=== PATIENT | female | born 1955 | race Caucasian/White ===

== ENCOUNTER 2018-01-13 20:15 | Observation (INO) | payer BC, SELFPAY ==
[2018-01-13] VITALS (7 sets, daily range): BP systolic 119–159; BP diastolic 43–137; PULSE 104–117; RESP 20–28; TEMP 36.4–37.1; O2SAT 88–93; BMI 28.7; BMI 26.6
--- NOTE | 2018-01-13 20:52 | RAD_ITS ---
STUDY: X-RAY CHEST REASON FOR EXAM: Female, 62 years old. SOB / SOA TECHNIQUE: Single frontal view of the chest. COMPARISON: None. FINDINGS: Chronic appearing increased interstitial lung markings. There is no demonstrated pleural abnormality. Normal heart size. Normal mediastinum and braenna. Normal visualized pulmonary arteries. There is atherosclerotic calcification of the aortic arch with tortuosity. There are diffuse degenerative changes of the visualized thoracic spine. There is degenerative osteoarthritis of the bilateral shoulders. There is no demonstrated abnormality of the visualized soft tissue structures of the upper abdomen. RAD/Chest 1 View (Portable) IMPRESSION: There are no acute findings. Electronically Signed: Dominic Godfrey MD at 21:35 EDT , Service support ,
--- NOTE | 2018-01-13 20:56 | NURSING ---
NO OLD EKG'S
[2018-01-13] MEDS: Ipratropium/Albuterol Sulfate 3 ML AMPUL.NEB INHALATION (21:00)
[2018-01-13] MEDS: Albuterol 2.5 MG/3 ML VIAL.NEB. INHALATION ×3 (21:01)
[2018-01-13 21:05] LABS: Basophil# 0.04 X10^3/uL; Basophil% 0.3 % (0-1); Eosinophil# 0.17 X10^3/uL; Eosinophils% 1.2 % (0-5); Hematocrit 45.6 % (37-47); Hemoglobin 14.5 g/dl (12.0-15.0); Lymphocyte % 18.8 % (19-41); Mean Corp Hgb Conc 31.8 g/gl (32-36); Mean Corpuscular Hgb 29.9 pg (27.0-32.0); Mean Platelet Vol. 10.6 fl (6.2-12.0); Monocyte# 1.01 X10^3/uL; Monocyte% 7.3 % (0-10); Neutrophil # 9.98 X10^3/uL (2.7-7.7); Neutrophil % 72.2 % (47-70); Platelet Count 273 K/mm3 (150-450); RBC Distribution Width SD 47.8 fl (35.1-43.9); Red Blood Count 4.85 M/mm3 (4.2-5.4); White Blood Count 13.8 K/mm3 (4.4-11.0)
[2018-01-13 21:06] LABS: POSITIVE COUNT NO; POSITIVE DIFFERENTIAL NO; POSITIVE MORPHOLOGY NO
[2018-01-13 21:23] LABS: Anion Gap 10 (5-15); BUN 13 mg/dL (7-18); BUN/Creat Ratio 16.1 RATIO (10-20); Chloride 103 mmol/L (98-107); Creatinine, Serum 0.81 mg/dL (0.55-1.02); EST Glomerular Filtration Rate 76 mL/min (>60); Est Glom Filt Rate - Afr Amer 92 mL/min (>60); Estimated Creatinine Clearance 56.23 ml/min; Glucose 164 mg/dL (74-106); Potassium 3.6 mmol/L (3.5-5.1); Sodium Level 141 mmol/L (136-145)
[2018-01-13 21:45] LABS: Blood Gas Specimen Type VEN; SITE OTHER; VBG BASE EXCESS 3 mmol/L (-1.0-3.5); VBG Bicarbonate 28 mmol/L (22-26); VBG Oxygen Content 30 mmol/L (23-33); VBG PO2 33 mmHg (25-40); VBG SO2 62 % (50-70); VBG pCO2 47.4 mmHg (41-51); VBG pH 7.38 (7.32-7.42)
--- NOTE | 2018-01-13 22:18 | PCM.HP.STD ---
Problem List (1) Asthma Status: Chronic Qualifiers: Asthma severity: unspecified severity Asthma persistence: unspecified Asthma complication type: unspecified Qualified Code(s): J45.909 - Unspecified asthma, uncomplicated (2) Asthma exacerbation Status: Acute Qualifiers: Asthma severity: unspecified severity Asthma persistence: unspecified Qualified Code(s): J45.901 - Unspecified asthma with (acute) exacerbation (3) Diabetes mellitus, type II Status: Acute Qualifiers: Diabetes mellitus termination clerk insulin use: without residential use Diabetes mellitus complication status: with unspecified complications Qualified Code(s): E11.8 - Type 2 diabetes mellitus with unspecified complications (4) Overweight (BMI 25.0-29.9) Status: Chronic (5) Glaucoma Status: Chronic Qualifiers: Glaucoma type: unspecified Laterality: unspecified laterality Qualified Code(s): H40.9 - Unspecified glaucoma History of Present Illness Date of Admission: 01/13/18 Chief Complaint: Cough, dyspnea, wheezing, sore throat The patient is a 62 y/o F w/ PMHx: Asthma, Overweight, Diabetes mellitus type II who presents to the [facility] ED on 01/13/18 with history of recent PCP evaluation ~ 1 week prior with asthma exacerbation treatment at that time with currently only 1 remaining dose of prednisone with onset over the last 3 days new sore throat, cough, congestion, rhinorrhea with progressively increasing dyspnea, wheezing. In the ED work-up included initial oxygenation 88% on RA-->93% on 5L NC, HR 107, BP 159/137-->119/46, RR 20s, CBC w/ WBC 13.8, Hgb 14.5, Plts 273 with L shift, VBG not marked appearing, BMP glucose 164 otherwise not marked appearing, CXR without acute findings. In the ED patient administered NS bolus, prednisone 60 mg x 1, duoneb, albuterol. She notes recent ill contacts, grandchildren and children with URI, similar symptoms. She notes planned upcoming establishment with Pulmonary. Past Medical History Past Medical History (Chronic Problems): Chronic Problems (This Medical Record has been edited. Action required.) Asthma (Chronic) Overweight (BMI 25.0-29.9) (Chronic) Glaucoma (Chronic) Allergies amoxicillin trihydrate [From Augmentin] Adverse Reaction (Intermediate, Verified 01/13/18 20:20) Nausea potassium clavulanate [From Augmentin] Adverse Reaction (Intermediate, Verified 01/13/18 20:20) Nausea Home Medications: Ambulatory Orders Medication Instructions Recorded albuterol sulfate HFA 90 2 puff INHALATION Q4H PRN g 11/11/17 mcg/actuation aerosol inhaler fluticasone 100 mcg-salmeterol 50 1 puff INHALATION BID 11/11/17 mcg/dose blistr powdr for inhalation latanoprost 0.005 % eye drops 1 drp OPHTHALMIC QDAY 11/11/17 metformin 500 mg tablet 500 mg PO .4 x qd tab 11/11/17 sitagliptin 100 mg tablet 100 mg PO QDAY 11/11/17 Lisinopril [Zestril] 2.5 mg PO DAILY 01/13/18 Montelukast [Singulair] 10 mg PO DAILY 01/13/18 Surgical History: - - Appendectomy, BLTL. 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 Paternal History Items: - - Father with history of diabetes. Review of Systems Constitutional: Reports: Anorexia, Malaise, Weakness, Fatigue. Denies: Chills, Fever, Weight Change HEENT: Reports: Nasal Congestion, Post Nasal Drip, Sinus Congestion, Sinus Drainage, Sore Throat. Denies: Head Aches Cardiovascular: Denies: Chest Pain, Palpitations Respiratory: Reports: Cough, Shortness of Breath, Shortness of breath at rest, Shortness of breath upon exertion, Wheezing. Denies: Sputum production Gastrointestinal: Denies: Abdominal Pain, Nausea, Vomiting Genitourinary: Denies: Dysuria Musculoskeletal: Denies: Joint Pain, Joint Tenderness Skin: Denies: Rash, Wounds Neurological: Denies: Numbness, Tingling, Focal weakness Psychiatric: Denies: Anxiety, Depression, Homicidal Ideations, Suicidal Ideations Hematologic/ Lymphatic: Denies: Easy Bruising, Easy Bleeding VTE Information - Inpt Only VTE Present on Admission: No VTE Mechan Device Prophylaxis: SCD's VTE Pharm Prophylaxis ordered?: Yes Patient Problems: Active and Suspected Problems (This Medical Record has been edited. Action required.) Asthma exacerbation (Acute) Diabetes mellitus, type II (Acute) Subjective: Seated upright in the ED bed, fatigued appearing. Objective: Physical Examination: General: awake, alert, oriented x 3 and cooperative, seated upright in the ED bed in no apparent distress, fatigued, ill appearing. Skin: normal color, turgor, no icterus, cyanosis. HEENT: AT/NC, EOMI, PERRLA, mildly dry MM, red nares, rhinorrhea evident, congested, no carotid bruits or JVD noted. Lungs: Diminished BS bases, coarse BS, expiratory wheezing diffusely. Heart: Tachycardic with regular rhythm; no gallop, rub audible. Abdomen: soft, overweight, NTTP, ND, normal BS, no HSM. Extremities: no cyanosis, clubbing, or edema. Neurological: patient awake, alert, oriented x 3; cognitive function intact; pupils equally reactive to light and accomodation; cranial nerves II-XII grossly normal, moving all 4 extremities, no focal deficits, strength severely globally decrease secondary to acute presentation. Psychiatric: affect appears normal, no acute evidence of depressive or anxiety feelings. - Physical Exam Vital Signs Temp Pulse Resp BP Pulse Ox 98.7 F 111 H 23 H 119/46 L 93 01/13/18 20:16 01/13/18 22:15 01/13/18 22:15 01/13/18 22:15 01/13/18 22:15 Oxygen Flow Rate (L/min) 5 Oxygen Delivery Method Nasal Cannula Weight: 157 lb 3.033 oz Body Mass Index (BMI) 28.7 Laboratory Tests Past 24 Hrs 01/13/18 01/13/18 01/13/18 20:38 20:38 21:39 WBC 13.8 H RBC 4.85 Hgb 14.5 Hct 45.6 MCV 94.0 MCH 29.9 MCHC 31.8 L RDW 14.0 RDW Differential 47.8 H Plt Count 273 MPV 10.6 Immature Gran % (Auto) 0.200 Neut % (Auto) 72.2 H Lymph % (Auto) 18.8 L Bailey % (Auto) 7.3 Eos % (Auto) 1.2 Baso % (Auto) 0.3 Absolute Neuts (auto) 10.0 H Absolute Lymphs (auto) 2.60 Total Counted Not Reportable Specimen Type DAVID Sample Site OTHER VBG pH 7.38 VBG pO2 33 VBG O2 Sat (Calc) 62 VBG O2 Content 30 VBG Base Excess 3 POC Mix VBG pCO2 Pt Tmp 47.4 Blood Gas Notified Whom ED Sodium 141 Potassium 3.6 Chloride 103 Carbon Dioxide 28.0 Anion Gap 10 BUN 13 Creatinine 0.81 Estim Creat Clear Calc 56.23 Est GFR (MDRD) Af Amer 92 Est GFR (MDRD) Non-Af 76 BUN/Creatinine Ratio 16.1 Glucose 164 H Calcium 9.0 Assessment/Plan Active and Suspected Problems (This Medical Record has been edited. Action required.) Asthma exacerbation (Acute) Diabetes mellitus, type II (Acute) The patient is a 62 y/o F w/ PMHx: Asthma, Overweight, Diabetes mellitus type II who presents to the [facility] ED on 01/13/18 with history of recent PCP evaluation ~ 1 week prior with asthma exacerbation treatment at that time with currently only 1 remaining dose of prednisone with onset over the last 3 days new sore throat, cough, congestion, rhinorrhea with progressively increasing dyspnea, wheezing. (1) Acute Asthma exacerbation w/ Hypoxia, URI, Suspected Viral Syndrome, Possible Bronchitis Additionally: CXR w/ chronic changes, CBC on admission w/ WBC 13.8 with L shift. Will admit to MS, maintain on oxygen with wean as tolerated to room air, continue ATC duonebs, PRN albuterol, IV methylprednisolone, HOB, IS parameters, IV Azithromcyin with pending sputum cultures and respiratory viral panel requested. (2) Diabetes mellitus type II: Hold oral home regimen, continue home insulin regimen, ADA diet, accu checks w/ ISS. (3) Overweight: Lifestyle and diet changes encouraged. (4) Glaucoma: Continue home eye drop regimen. (5) DVT Prophylaxis: SCDs, lovenox. Code Visit Inpatient E&M: 90026 Init Hosp L3
[2018-01-13 23:39] LABS: Magnesium 2.1 mg/dL (1.6-2.6)
[2018-01-13] MEDS: 0.9% Normal Saline 1,000 ML 125 ML IV (23:44)
[2018-01-13] MEDS: MethylPREDNISolone 125 MG/2 ML Vial IV (23:44)
[2018-01-14] VITALS (14 sets, daily range): BP systolic 100–119; BP diastolic 51–81; PULSE 85–115; RESP 16–20; TEMP 35.5–36.6; O2SAT 84–97
[2018-01-14] MEDS: Ondansetron 4 MG/2 ML Vial IV (00:13)
--- NOTE | 2018-01-14 01:39 | ED.VISSUMM ---
- ER Visit Summary Date of Service: 01/14/18 Chief Complaint: Shortness of breath History of Present Illness: The patient is a 62 F presenting for evaluation secondary shortness of breath. Patient has an underlying history of asthma, and states that last week she was suffering from an asthma exacerbation. She was placed on a prednisone taper and is on the last 2 days of her prednisone taper. Patient states that since yesterday she has been had progressively worsening shortness of breath. Is associated with a cough sore throat and rhinorrhea. Patient denies any chest pain associated with this. Review of systems otherwise negative. Physical Examination: Vital signs are notable for heart rate of 107 a pulse ox of 88% on room air with hypoxia. Well-nourished female no acute distress. Moist mucous membranes. Heart regular rhythm with mild tachycardia. No respiratory distress was noted, but the patient was noted to have significant wheezes throughout the lung johnson and poor air movement. No obvious retractions noted. Abdomen soft nontender. No peripheral edema normal peripheral pulses. Test Results: Chest x-ray shows no acute pathology per radiology. CBC shows white count of 13.8, chemistry unremarkable. Emergency Department Course and Treatment: Patient presented for evaluation secondary to shortness of breath in the setting of wheezing and a history of asthma. She was given a DuoNeb and albuterol treatments as well as prednisone and did have some improvement on repeat evaluation. Patient continued to require submental oxygen, so I believe she requires admission. I discussed this with the hospitalist. Disposition: Admission Impression: 1. Asthma exacerbation 2. Hypoxia This note was generated with [employer] dictation software. It may contain incorrect words, spelling, and punctuation that were not noted in review of the chart prior to signing ED Disposition - Plan for ED Patient: Disposition: Acute Care Hospital [facility] Chief Complaint: Shortness of Breath
[2018-01-14] MEDS: Ipratropium/Albuterol Sulfate 3 ML AMPUL.NEB INHALATION ×6 (03:03→22:19)
[2018-01-14 06:55] LABS: Bedside Glucose 216 mg/dL (70-110)
[2018-01-14 07:15] LABS: Anion Gap 9 (5-15); BUN 11 mg/dL (7-18); BUN/Creat Ratio 12.6 RATIO (10-20); Calcium,Total 8.9 mg/dL (8.5-10.1); Chloride 105 mmol/L (98-107); Creatinine, Serum 0.87 mg/dL (0.55-1.02); EST Glomerular Filtration Rate 70 mL/min (>60); Est Glom Filt Rate - Afr Amer 84 mL/min (>60); Estimated Creatinine Clearance 52.35 ml/min; Glucose 220 mg/dL (74-106); Potassium 4.4 mmol/L (3.5-5.1); Sodium Level 140 mmol/L (136-145)
[2018-01-14 07:21] LABS: Absolute Lymphocyte Count 0.86 X10^3/ul (0.83-4.51); Absolute Neutrophil Count 13.9 X10^3/uL (2.0-7.7); Hematocrit 42.4 % (37-47); Hemoglobin 13.7 g/dl (12.0-15.0); Lymphocyte # 0.86 X10^3/ul (4.0); Lymphocyte % 5.8 % (19-41); Mean Corp Hgb Conc 32.3 g/gl (32-36); Mean Corpuscular Hgb 30.1 pg (27.0-32.0); Mean Corpuscular Volume 93.2 fL (81-99); Mean Platelet Vol. 10.9 fl (6.2-12.0); Monocyte# 0.13 X10^3/uL; Monocyte% 0.9 % (0-10); Neutrophil # 13.87 X10^3/uL (2.7-7.7); Platelet Count 274 K/mm3 (150-450); RBC Distribution Width SD 47.5 fl (35.1-43.9); Red Blood Count 4.55 M/mm3 (4.2-5.4); White Blood Count 14.9 K/mm3 (4.4-11.0)
[2018-01-14 07:44] LABS: POSITIVE COUNT NO; POSITIVE DIFFERENTIAL NO; POSITIVE MORPHOLOGY NO
--- NOTE | 2018-01-14 09:20 | PCM.DC ---
- Discharge Diagnoses Current Active Problems: Current Active and Chronic Problems (This Medical Record has been edited. Action required.) Asthma (Chronic) Asthma exacerbation (Acute) Diabetes mellitus, type II (Acute) Overweight (BMI 25.0-29.9) (Chronic) Glaucoma (Chronic) You will use the following diet at home:: No restrictions Your food should be the consistency of: Regular Discharge Activity: May not drive while taking narcotic pain medications. Allergies/Adverse Reactions: Allergies cat dander Allergy (Verified 01/13/18 23:36) wheezy mold Allergy (Verified 01/13/18 23:36) wheezy pollen extracts Allergy (Verified 01/13/18 23:36) wheezy amoxicillin trihydrate [From Augmentin] Adverse Reaction (Intermediate, Verified 01/13/18 20:20) Nausea potassium clavulanate [From Augmentin] Adverse Reaction (Intermediate, Verified 01/13/18 20:20) Nausea Medications to take at Discharge albuterol sulfate HFA 90 mcg/actuation aerosol inhaler 2 puff INHALATION Q4H PRN g 11/11/17 latanoprost 0.005 % eye drops 1 drp OPHTHALMIC QHS 11/11/17 sitagliptin 100 mg tablet 100 mg PO DINNER 11/11/17 Albuterol IH (ProAir) [Proair Hfa] 1 puff INHALATION Q6H PRN 01/13/18 Fluticasone/Salmeterol [Advair 250-50 Diskus] 1 puff INHALATION QHS 01/13/18 Lisinopril [Zestril] 2.5 mg PO DAILY 01/13/18 Metformin HCl [Metformin HCl ER] 1 tab PO DINNER 01/13/18 Montelukast [Singulair] 10 mg PO DAILY 01/13/18 Omeprazole 1 tab PO QHS 01/13/18 Doxycycline 100 mg PO BID #14 cap 01/14/18 Guaifenesin [Mucinex] 1,200 mg PO BID #14 tab 01/14/18 Prednisone 20 mg PO BID #10 tab 01/14/18 The following prescriptions were given: Doxycycline 100 mg PO BID #14 cap Guaifenesin [Mucinex] 1,200 mg PO BID #14 tab Prednisone 20 mg PO BID #10 tab Primary Care Physician: Bahman Yi DO [Primary Care Provider] - Please follow up with your Primary Care Physician in: in 5-7 days Proposed Discharge Date: 01/14/18
--- NOTE | 2018-01-14 10:35 | PCM.DC.SUM ---
Discharge Date and Diagnosis - Problem List Patient Problems: Active and Suspected Problems (This Medical Record has been edited. Action required.) Asthma exacerbation (Acute) Diabetes mellitus, type II (Acute) Date of Admission: 01/13/18 - Primary Discharge Diagnosis Active and Suspected Problems (This Medical Record has been edited. Action required.) Asthma exacerbation (Acute) Diabetes mellitus, type II (Acute) - Secondary Discharge Diagnosis Chronic Problems (This Medical Record has been edited. Action required.) Asthma (Chronic) Overweight (BMI 25.0-29.9) (Chronic) Glaucoma (Chronic) Hospital Course and Treatment Summary of Care Provided: The patient is a 62 year old F [] Discharge Activity: May not drive while taking narcotic pain medications. Home Medications: Medications to take at Discharge albuterol sulfate HFA 90 mcg/actuation aerosol inhaler 2 puff INHALATION Q4H PRN g 11/11/17 latanoprost 0.005 % eye drops 1 drp OPHTHALMIC QHS 11/11/17 sitagliptin 100 mg tablet 100 mg PO DINNER 11/11/17 Albuterol IH (ProAir) [Proair Hfa] 1 puff INHALATION Q6H PRN 01/13/18 Fluticasone/Salmeterol [Advair 250-50 Diskus] 1 puff INHALATION QHS 01/13/18 Lisinopril [Zestril] 2.5 mg PO DAILY 01/13/18 Metformin HCl [Metformin HCl ER] 1 tab PO DINNER 01/13/18 Montelukast [Singulair] 10 mg PO DAILY 01/13/18 Omeprazole 1 tab PO QHS 01/13/18 Doxycycline 100 mg PO BID #14 cap 01/14/18 Guaifenesin [Mucinex] 1,200 mg PO BID #14 tab 01/14/18 Prednisone 20 mg PO BID #10 tab 01/14/18 Following Prescrptions Were Given to Patient: Doxycycline 100 mg PO BID #14 cap Guaifenesin [Mucinex] 1,200 mg PO BID #14 tab Prednisone 20 mg PO BID #10 tab Primary Care Physician: Bahman Yi DO [Primary Care Provider] - Please follow up with your Primary Care Physician in: in 5-7 days
[2018-01-14] MEDS: guaiFENesin 1,200 MG Tablet 1200 MG PO ×2 (10:36→22:10)
[2018-01-14] MEDS: Lisinopril 2.5 MG Tablet PO (10:36)
[2018-01-14] MEDS: Famotidine 20 MG Tablet PO ×2 (10:36→22:10)
[2018-01-14] MEDS: Montelukast 10 MG Tablet PO (10:36)
[2018-01-14] MEDS: Latanoprost 0.005% 1 Bottle 1 DRP OPHTHALMIC (10:37)
[2018-01-14] MEDS: Enoxaparin 40 MG/0.4 ML Syringe SC (10:38)
[2018-01-14 11:15] LABS: Bedside Glucose 335 mg/dL (70-110)
--- NOTE | 2018-01-14 11:36 | CASEMGMT ---
Patient qualified for home oxygen, and reports would like to use [facility]. RN CM will submit referral after home oxygen qualification is documented and script received from Dr. Cortes. Katharine Wheeler BSN, RN-BC, CCM
--- NOTE | 2018-01-14 12:01 | CASEMGMT ---
Dr. Cortes has decided to cancel discharge and keep patient one more day. RN CM notified patient and will defer oxygen referral until tomorrow. Katharine Wheeler, BSN, RN-, [facility]
--- NOTE | 2018-01-14 12:05 | PCM.PN.HOSP ---
Patient Problems: Active and Suspected Problems (This Medical Record has been edited. Action required.) Asthma exacerbation (Acute) Diabetes mellitus, type II (Acute) Subjective: Patient is a 62-year-old female with past medical history sent on for asthma who presented with progressive shortness of breath. On assessment of acute asthma exacerbation was made patient admitted to regular nursing floor for further management. 01/14/2018. Patient was ambulated without oxygen with resultant drop in her oxygen saturation decision to discharge patient subsequently discontinued Objective: GENERAL: cooperative HEENT: Clear conjunctiva, NECK; supple, normal thyroid, CHEST: Diminished to auscultation bilaterally, HEART: Regular S1 S2, no audible murmurs ABDOMEN: soft, non-tender, normoactive bowel sounds, RECTAL: deferred EXTREMITIES: No edema, no clubbing, no cyanosis. VP & GENERAL COUNSEL: Awake, no lateralizing signs. SKIN: No Rash Vitals/I&O's: Vital Signs Temp Pulse Resp BP Pulse Ox 97.6 F L 108 H 18 112/58 L 90 01/14/18 08:30 01/14/18 10:54 01/14/18 10:54 01/14/18 08:30 01/14/18 11:35 Oxygen Flow Rate (L/min) [ 4 AMBULATION with Oxygen] Oxygen Flow Rate (L/min) 2 Oxygen Delivery Method Nasal Cannula Weight: 66 kg Body Mass Index (BMI) 26.6 Intake and Output for Last 24 Hours 01/12/18 01/13/18 01/14/18 23:59 23:59 23:59 Intake Total 1416 / 1416 Balance 1416 / 1416 Microbiology Past 72 Hours 01/14/18 03:05 Sputum, Expectorated/Coughed Gram Stain - Final 01/14/18 03:04 Mucosa - Nasopharyngeal Respiratory Panel (PCR) - Final Rhinovirus Laboratory Results 01/14/18 06:28: Sodium 140, Potassium 4.4, Chloride 105, Carbon Dioxide 26.0, Anion Gap 9, BUN 11, Creatinine 0.87, Estim Creat Clear Calc 52.35, Est GFR (MDRD) Af Amer 84, Est GFR (MDRD) Non-Af 70, BUN/Creatinine Ratio 12.6, Glucose 220 H, Calcium 8.9 01/14/18 06:28: WBC 14.9 H, RBC 4.55, Hgb 13.7, Hct 42.4, MCV 93.2, MCH 30.1, MCHC 32.3, RDW 14.0, RDW Differential 47.5 H, Plt Count 274, MPV 10.9, Immature Gran % (Auto) 0.300, Neut % (Auto) 93.0 H, Lymph % (Auto) 5.8 L, [place] % (Auto) 0.9, Eos % (Auto) 0.0, Baso % (Auto) 0.0, Absolute Neuts (auto) 13.9 H, Absolute Lymphs (auto) 0.86, Total Counted Not Reportable 01/14/18 06:47: POC Glucose 216 H 01/14/18 11:05: POC Glucose 335 H Current Medications Acetaminophen (Tylenol) 650 mg PO Q6H PRN PRN PRN Reason: Mild Pain (scale 0-3)/T>100.7 Al Hydroxide/Mg Hydroxide (Mylanta Ii) 30 ml PO Q6H PRN PRN PRN Reason: Gastric burning Albuterol Sulfate (Ventolin Aerosols) 2.5 mg INHALATION Q2H PRN PRN PRN Reason: SHORTNESS OF BREATH Albuterol/Ipratropium (Duoneb) [address] [facility] Last Admin: 01/14/18 10:54 Dose: 3 ml Dextrose (D50w Syringe) 0 gm IV X1 PRN; Protocol PRN Reason: Hypoglycemia Enoxaparin Sodium (Lovenox) 40 mg SC DAILY@1000 [facility] Last Admin: 01/14/18 10:38 Dose: 40 mg Famotidine (Pepcid) [address] [facility] Last Admin: 01/14/18 10:36 Dose: 20 mg Glucagon () 1 mg IM .X1 PRN PRN Reason: Hypoglycemia Guaifenesin (Mucinex) 1,[address] [facility] Last Admin: 01/14/18 10:36 Dose: 1,200 mg Hydralazine HCl (Apresoline) 10 mg IV Q4H PRN PRN PRN Reason: SBP > 160 Azithromycin 500 mg/ Dextrose 255 mls @ 250 mls/hr IV Q24 [facility] Last Admin: 01/14/18 10:36 Dose: 250 mls/hr Sodium Chloride () 250 mls @ 15 mls/hr IV .[id number] PRN PRN Reason: SALINE FLUSH Insulin Aspart (Novolog Flexpen (Bkc)) [address] [facility] PRN Reason: Protocol Last Admin: 01/14/18 11:06 Dose: 5 u Latanoprost (Xalatan Opthalmic) [address] [facility] Last Admin: 01/14/18 10:37 Dose: 1 drop Lisinopril (Zestril) 2.[address] [facility] Last Admin: 01/14/18 10:36 Dose: 2.5 mg Magnesium Hydroxide (Milk Of Magnesia) 30 ml PO DAILY PRN PRN PRN Reason: Constipation Methylprednisolone (Solu-Medrol) [address] [facility] Last Admin: 01/14/18 06:44 Dose: 40 mg Montelukast Sodium (Singulair) [address] [facility] Last Admin: 01/14/18 10:36 Dose: 10 mg Morphine Sulfate (Morphine) 2 - 4 mg IV Q3H PRN PRN PRN Reason: Severe Pain (pain scale 6-10) Morphine Sulfate (Morphine) 1 - 2 mg IV Q4H PRN PRN PRN Reason: Moderate Pain (pain scale 4-5) Ondansetron HCl (Zofran) 4 mg IV Q8H PRN PRN PRN Reason: NAUSEA Last Admin: 01/14/18 00:13 Dose: 4 mg Oxycodone HCl (Oxyir) 5 mg PO Q4H PRN PRN PRN Reason: Moderate Pain (pain scale 4-5) Promethazine HCl (Phenergan (Ll)) 12.5 mg IV Q6H PRN PRN PRN Reason: NAUSEA/VOMITING Sodium Chloride () 5 - 30 ml IV UD PRN PRN Reason: SALINE FLUSH Assessment/Plan Active and Suspected Problems (This Medical Record has been edited. Action required.) Asthma exacerbation (Acute) Diabetes mellitus, type II (Acute) Patient is a 62-year-old female with past medical history sent on for asthma who presented with progressive shortness of breath. On assessment of acute asthma exacerbation was made patient admitted to regular nursing floor for further management. 1. Acute respiratory insufficiency secondary to acute eczema with exacerbation. Patient placed on a regular nursing floor managed with bronchodilator treatment as well as systemic steroids with supplemental oxygen titrated to keep pulse ox greater than 92 2. Diabetes mellitus type 2 patient oral agents held on admission please and Accu-Cheks with sliding scale coverage 3. Glaucoma 4. DVT prophylaxis SC Lovenox Code Visit Inpatient E&M: 32844 Subs Hosp L3
--- NOTE | 2018-01-14 12:08 | PN_ITS ---
Patient Problems: Active and Suspected Problems (This Medical Record has been edited. Action required.) Asthma exacerbation (Acute) Diabetes mellitus, type II (Acute) Subjective: Patient is a 62-year-old female with past medical history sent on for asthma who presented with progressive shortness of breath. On assessment of acute asthma exacerbation was made patient admitted to regular nursing floor for further management. 01/14/2018. Patient was ambulated without oxygen with resultant drop in her oxygen saturation decision to discharge patient subsequently discontinued Objective: GENERAL: cooperative HEENT: Clear conjunctiva, NECK; supple, normal thyroid, CHEST: Diminished to auscultation bilaterally, HEART: Regular S1 S2, no audible murmurs ABDOMEN: soft, non-tender, normoactive bowel sounds, RECTAL: deferred EXTREMITIES: No edema, no clubbing, no cyanosis. PAPER INSERTER: Awake, no lateralizing signs. SKIN: No Rash Vitals/I&O's: Vital Signs Temp Pulse Resp BP Pulse Ox 97.6 F L 108 H 18 112/58 L 90 01/14/18 08:30 01/14/18 10:54 01/14/18 10:54 01/14/18 08:30 01/14/18 11:35 Oxygen Flow Rate (L/min) [ 4 AMBULATION with Oxygen] Oxygen Flow Rate (L/min) 2 Oxygen Delivery Method Nasal Cannula Weight: 66 kg Body Mass Index (BMI) 26.6 Intake and Output for Last 24 Hours 01/12/18 01/13/18 01/14/18 23:59 23:59 23:59 Intake Total 1416 / 1416 Balance 1416 / 1416 Microbiology Past 72 Hours 01/14/18 03:05 Sputum, Expectorated/Coughed Gram Stain - Final 01/14/18 03:04 Mucosa - Nasopharyngeal Respiratory Panel (PCR) - Final Rhinovirus Laboratory Results 01/14/18 06:28: Sodium 140, Potassium 4.4, Chloride 105, Carbon Dioxide 26.0, Anion Gap 9, BUN 11, Creatinine 0.87, Estim Creat Clear Calc 52.35, Est GFR ( MDRD) Af Amer 84, Est GFR (MDRD) Non-Af 70, BUN/Creatinine Ratio 12.6, Glucose 220 H, Calcium 8.9 01/14/18 06:28: WBC 14.9 H, RBC 4.55, Hgb 13.7, Hct 42.4, MCV 93.2, MCH 30.1, MCHC 32.3, RDW 14.0, RDW Differential 47.5 H, Plt Count 274, MPV 10.9, Immature Gran % (Auto) 0.300, Neut % (Auto) 93.0 H, Lymph % (Auto) 5.8 L, Clayton % (Auto) 0.9, Eos % (Auto) 0.0, Baso % (Auto) 0.0, Absolute Neuts (auto) 13.9 H, Absolute Lymphs (auto) 0.86, Total Counted Not Reportable 01/14/18 06:47: POC Glucose 216 H 01/14/18 11:05: POC Glucose 335 H Current Medications Acetaminophen (Tylenol) 650 mg PO Q6H PRN PRN PRN Reason: Mild Pain (scale 0-3)/T>100.7 Al Hydroxide/Mg Hydroxide (Mylanta Ii) 30 ml PO Q6H PRN PRN PRN Reason: Gastric burning Albuterol Sulfate (Ventolin Aerosols) 2.5 mg INHALATION Q2H PRN PRN PRN Reason: SHORTNESS OF BREATH Albuterol/Ipratropium (Duoneb) 3 ml INHALATION Q4H.RT [facility] Last Admin: 01/14/18 10:54 Dose: 3 ml Dextrose (D50w Syringe) 0 gm IV X1 PRN; Protocol PRN Reason: Hypoglycemia Enoxaparin Sodium (Lovenox) 40 mg SC DAILY@1000 [facility] Last Admin: 01/14/18 10:38 Dose: 40 mg Famotidine (Pepcid) 20 mg PO BID [facility] Last Admin: 01/14/18 10:36 Dose: 20 mg Glucagon () 1 mg IM .X1 PRN PRN Reason: Hypoglycemia Guaifenesin (Mucinex) 1,200 mg PO BID [facility] Last Admin: 01/14/18 10:36 Dose: 1,200 mg Hydralazine HCl (Apresoline) 10 mg IV Q4H PRN PRN PRN Reason: SBP > 160 Azithromycin 500 mg/ Dextrose 255 mls @ 250 mls/hr IV Q24 [facility] Last Admin: 01/14/18 10:36 Dose: 250 mls/hr Sodium Chloride () 250 mls @ 15 mls/hr IV .[id number] PRN PRN Reason: SALINE FLUSH Insulin Aspart (Novolog Flexpen (Bkc)) 0 units SC ACHS [facility] PRN Reason: Protocol Last Admin: 01/14/18 11:06 Dose: 5 u Latanoprost (Xalatan Opthalmic) 1 drop OPHTHALMIC DAILY [facility] Last Admin: 01/14/18 10:37 Dose: 1 drop Lisinopril (Zestril) 2.5 mg PO DAILY [facility] Last Admin: 01/14/18 10:36 Dose: 2.5 mg Magnesium Hydroxide (Milk Of Magnesia) 30 ml PO DAILY PRN PRN PRN Reason: Constipation Methylprednisolone (Solu-Medrol) 40 mg IV Q8 [facility] Last Admin: 01/14/18 06:44 Dose: 40 mg Montelukast Sodium (Singulair) 10 mg PO DAILY [facility] Last Admin: 01/14/18 10:36 Dose: 10 mg Morphine Sulfate (Morphine) 2 - 4 mg IV Q3H PRN PRN PRN Reason: Severe Pain (pain scale 6-10) Morphine Sulfate (Morphine) 1 - 2 mg IV Q4H PRN PRN PRN Reason: Moderate Pain (pain scale 4-5) Ondansetron HCl (Zofran) 4 mg IV Q8H PRN PRN PRN Reason: NAUSEA Last Admin: 01/14/18 00:13 Dose: 4 mg Oxycodone HCl (Oxyir) 5 mg PO Q4H PRN PRN PRN Reason: Moderate Pain (pain scale 4-5) Promethazine HCl (Phenergan (Ll)) 12.5 mg IV Q6H PRN PRN PRN Reason: NAUSEA/VOMITING Sodium Chloride () 5 - 30 ml IV UD PRN PRN Reason: SALINE FLUSH Assessment/Plan Active and Suspected Problems (This Medical Record has been edited. Action required.) Asthma exacerbation (Acute) Diabetes mellitus, type II (Acute) Patient is a 62-year-old female with past medical history sent on for asthma who presented with progressive shortness of breath. On assessment of acute asthma exacerbation was made patient admitted to regular nursing floor for further management. 1. Acute respiratory insufficiency secondary to acute eczema with exacerbation. Patient placed on a regular nursing floor managed with bronchodilator treatment as well as systemic steroids with supplemental oxygen titrated to keep pulse ox greater than 92 2. Diabetes mellitus type 2 patient oral agents held on admission please and Accu-Cheks with sliding scale coverage 3. Glaucoma 4. DVT prophylaxis SC Lovenox Code Visit Inpatient E&M: 47774 Subs Hosp L3
[2018-01-14] MEDS: 0.9% NaCl Peripheral Flush Adult/Peds IV ×2 (14:36→22:10)
[2018-01-14 17:05] LABS: Bedside Glucose 235 mg/dL (70-110)
[2018-01-14 22:21] LABS: Bedside Glucose 275 mg/dL (70-110)
[2018-01-15] VITALS (11 sets, daily range): BP systolic 108–120; BP diastolic 41–51; PULSE 76–102; RESP 14–18; TEMP 36.3–36.6; O2SAT 2–99
[2018-01-15] MEDS: Ipratropium/Albuterol Sulfate 3 ML AMPUL.NEB INHALATION ×3 (03:23→10:49)
[2018-01-15] MEDS: 0.9% NaCl Peripheral Flush Adult/Peds IV ×2 (05:48→10:23)
[2018-01-15 06:36] LABS: Bedside Glucose 193 mg/dL (70-110)
--- NOTE | 2018-01-15 07:44 | PCM.DC.SUM ---
Discharge Date and Diagnosis - Problem List Patient Problems: Active and Suspected Problems (This Medical Record has been edited. Action required.) Asthma exacerbation (Acute) Diabetes mellitus, type II (Acute) Date of Admission: 01/13/18 Date of Discharge: 01/15/18 - Primary Discharge Diagnosis Active and Suspected Problems (This Medical Record has been edited. Action required.) Asthma exacerbation (Acute) Diabetes mellitus, type II (Acute) - Secondary Discharge Diagnosis Chronic Problems (This Medical Record has been edited. Action required.) Asthma (Chronic) Overweight (BMI 25.0-29.9) (Chronic) Glaucoma (Chronic) Hospital Course and Treatment Imaging Results: Clinical Impression(s) from Imaging Studies Chest X-Ray 01/13/18 20:52 IMPRESSION: There are no acute findings. Electronically Signed: Dominic Godfrey MD at 21:35 EDT , Service support , Summary of Care Provided: Patient is a 62-year-old female with past medical history sent on for asthma who presented with progressive shortness of breath. On assessment of acute asthma exacerbation was made patient admitted to regular nursing floor for further management. 1. Acute respiratory insufficiency secondary to acute eczema with exacerbation. Patient placed on a regular nursing floor managed with bronchodilator treatment as well as systemic steroids with supplemental oxygen titrated to keep pulse ox greater than 92 she was assessed for home oxygen prior to her discharge which he did qualify she would need home oxygen with possibility since she is mobile both in the community and at home. 2. Diabetes mellitus type 2 patient oral agents held on admission please and Accu-Cheks with sliding scale coverage 3. Glaucoma 4. DVT prophylaxis SC Lovenox Discharge Diet: No Restrictions Discharge Activity: May not drive while taking narcotic pain medications. Home Medications: Medications to take at Discharge albuterol sulfate HFA 90 mcg/actuation aerosol inhaler 2 puff INHALATION Q4H PRN g 11/11/17 latanoprost 0.005 % eye drops 1 drp OPHTHALMIC QHS 11/11/17 sitagliptin 100 mg tablet 100 mg PO DINNER 11/11/17 Albuterol IH (ProAir) [Proair Hfa] 1 puff INHALATION Q6H PRN 01/13/18 Fluticasone/Salmeterol [Advair 250-50 Diskus] 1 puff INHALATION QHS 01/13/18 Lisinopril [Zestril] 2.5 mg PO DAILY 01/13/18 Metformin HCl [Metformin HCl ER] 1 tab PO DINNER 01/13/18 Montelukast [Singulair] 10 mg PO DAILY 01/13/18 Omeprazole 1 tab PO QHS 01/13/18 Doxycycline 100 mg PO BID #14 cap 01/14/18 Guaifenesin [Mucinex] 1,200 mg PO BID #14 tab 01/14/18 Prednisone 20 mg PO BID #10 tab 01/14/18 Following Prescrptions Were Given to Patient: Doxycycline 100 mg PO BID #14 cap Guaifenesin [Mucinex] 1,200 mg PO BID #14 tab Prednisone 20 mg PO BID #10 tab Primary Care Physician: Bahman Yi DO [Primary Care Provider] - Please follow up with your Primary Care Physician in: in 5-7 days Disposition: Home Minutes spent on discharge:: 35 Patient Condition:: Stable Meaningful Use Info Meaningful Use Diagnoses (Choose all that apply): None applicable Code Visit Inpatient E&M: 15778 Disch Hosp
[2018-01-15] MEDS: Montelukast 10 MG Tablet PO (10:14)
[2018-01-15] MEDS: Famotidine 20 MG Tablet PO (10:14)
[2018-01-15] MEDS: Latanoprost 0.005% 1 Bottle 1 DRP OPHTHALMIC (10:15)
[2018-01-15] MEDS: guaiFENesin 1,200 MG Tablet 1200 MG PO (10:15)
[2018-01-15] MEDS: Enoxaparin 40 MG/0.4 ML Syringe SC (10:15)
--- NOTE | 2018-01-15 10:28 | CASEMGMT ---
Discussed need for Home oxygen/ DME companies [employer] w/pt. Referral faxed to [facility]. Anuj DWYERN RN ACM
[2018-01-15 12:10] LABS: Bedside Glucose 337 mg/dL (70-110)
--- NOTE | 2018-01-15 13:25 | PCM.WORK.EX ---
Work/School Excuse Work/School Excuse for:: Patient Please excuse this person from:: Work From: 01/13/18 through: 01/27/18 Restrictions: Light Duty
== END 2018-01-15 13:40 | disposition home or self-care (01) ==
LOC: ED 21:08 → MS2 23:32
PROVIDERS: Admitting Provider Family Medicine; Emergency Provider Emergency Medicine; Family Provider Preventive Medicine Occupational Medicine; PCP Preventive Medicine Occupational Medicine; Visit Provider Internal Medicine
DX: J45.901 Unspecified asthma with (acute) exacerbation (principal); E11.9 Type 2 diabetes mellitus without complications; H40.9 Unspecified glaucoma; Z79.899 Other long term (current) drug therapy; Z79.84 Long term (current) use of oral hypoglycemic drugs
CPT/HCPCS: 36415; 71045; 80048; 82803; 82962; 83735; 85025; 87070; 87205; 87633; 94640; 96361; 96365; 96366; 96372; 96375; 96376; 99218; 99285; J7030; A4216; G0378; J2405

== ENCOUNTER → 2018-03-04 15:00 | Outpatient (CLI) | payer BC, SELFPAY ==
[2018-03-04 16:33] LABS: Absolute Lymphocyte Count 2.44 X10^3/ul (0.83-4.51); Absolute Neutrophil Count 4.9 X10^3/uL (2.0-7.7); Basophil# 0.05 X10^3/uL; Basophil% 0.6 % (0-1); Eosinophil# 0.25 X10^3/uL; Hematocrit 42.7 % (37-47); Hemoglobin 13.9 g/dl (12.0-15.0); Lymphocyte # 2.44 X10^3/ul (4.0); Lymphocyte % 29.4 % (19-41); Mean Corp Hgb Conc 32.6 g/gl (32-36); Mean Corpuscular Hgb 30.1 pg (27.0-32.0); Mean Corpuscular Volume 92.4 fL (81-99); Mean Platelet Vol. 10.7 fl (6.2-12.0); Monocyte# 0.67 X10^3/uL; Monocyte% 8.1 % (0-10); Neutrophil # 4.88 X10^3/uL (2.7-7.7); Neutrophil % 58.8 % (47-70); POSITIVE COUNT NO; POSITIVE DIFFERENTIAL NO; POSITIVE MORPHOLOGY NO; Platelet Count 286 K/mm3 (150-450); RBC Distribution Width CV 13.4 % (11.6-14.6); RBC Distribution Width SD 45.2 fl (35.1-43.9); Red Blood Count 4.62 M/mm3 (4.2-5.4); White Blood Count 8.3 K/mm3 (4.4-11.0)
[2018-03-10 11:30] LABS: Immunoglobulin E 69 IU/mL (0-100)
[2018-03-12 03:08] LABS: Alternaria tenuis 0.21 kU/L (Class 0/I); Ash, White <0.10 kU/L (Class 0); Aspergillus fumigatus <0.10 kU/L (Class 0); Bermuda Grass <0.10 kU/L (Class 0); Birch <0.10 kU/L (Class 0); Black Walnut <0.10 kU/L (Class 0); Cat Hair / Dander,Stand 0.45 kU/L (Class I); Cedar, Mountain <0.10 kU/L (Class 0); Cladosporium herbarum <0.10 kU/L (Class 0); Cockroach, American <0.10 kU/L (Class 0); Cottonwood <0.10 kU/L (Class 0); D farinae Mite 0.81 kU/L (Class II); D pteronyssinus 0.54 kU/L (Class I); Dog Epithelia 8.52 kU/L (Class IV); Elm, American White <0.10 kU/L (Class 0); Immunoglobulin E 69 IU/mL (0-100); Maple/Box Elder <0.10 kU/L (Class 0); Mulberry, White <0.10 kU/L (Class 0); Oak, White <0.10 kU/L (Class 0); Pecan <0.10 kU/L (Class 0); Penicillium Notatum <0.10 kU/L (Class 0); Pigweed, Rough <0.10 kU/L (Class 0); Ragweed, Short/Common <0.10 kU/L (Class 0); Russian Thistle <0.10 kU/L (Class 0); Sheep Sorrel <0.10 kU/L (Class 0); Sycamore, American <0.10 kU/L (Class 0); Timothy Grass <0.10 kU/L (Class 0)
[2018-03-12 11:31] LABS: Mouse Urine <0.10 kU/L (Class 0)
== END ==
PROVIDERS: Family Provider Preventive Medicine Occupational Medicine; PCP Preventive Medicine Occupational Medicine; Visit Provider Internal Medicine Critical Care Medicine
DX: J45.909 Unspecified asthma, uncomplicated (principal)
CPT/HCPCS: 36415; 82785; 85025; 86003

== ENCOUNTER → 2018-04-08 10:00 | Outpatient (CLI) | payer BC, SELFPAY ==
--- NOTE | 2018-04-08 10:00 | DT_ITS ---
This patient was seen during an EMR downtime April 05, 2018 - April 12, 2018. This patient may have a combination of paper and electronic documentation or all paper documentation. All documentation is viewable within the e-chart portion of [facility] for each patient visit.
--- NOTE | 2018-04-12 11:42 | PFT ---
INTRODUCTION: The patient is a 62-year-old female presents for pulmonary function testing secondary to a diagnosis of dyspnea. Respiratory therapy reports good patient effort. Bronchodilators were used during testing. INTERPRETATION: Forced expiration spirometry demonstrates the presence of a moderate large airways obstructive ventilatory defect. There was no significant response to aerosolized bronchodilators. Spirograms are of good quality and do not plateau indicating slow emptying of the lungs. Body plethysmography was performed and reveals lung volumes to be within normal limits. Diffusing capacity by single breath CO was preserved at 89% of predicted. IMPRESSION: These pulmonary function studies demonstrate the presence of an irreversible moderate large airways obstructive ventilatory defect with normal lung volumes and diffusing capacity.
== END ==
PROVIDERS: Family Provider Preventive Medicine Occupational Medicine; PCP Preventive Medicine Occupational Medicine; Visit Provider Internal Medicine Critical Care Medicine
DX: J45.909 Unspecified asthma, uncomplicated (principal)
CPT/HCPCS: 94060; 94726; 94729

== ENCOUNTER → 2018-05-13 08:27 | Outpatient (CLI) | payer BC, SELFPAY ==
[2018-05-13 12:26] LABS: Microalbumin,Random Urine 13.3 mg/L (NO RANGE EST.); Microalbumin:Creatinine Ratio 6.5 mg/g CRE (<30 mg/g CRE)
== END ==
PROVIDERS: Visit Provider Family Medicine
DX: E11.9 Type 2 diabetes mellitus without complications (principal)
CPT/HCPCS: 82043; 82570

== ENCOUNTER → 2019-02-18 07:25 | Outpatient (CLI) | payer BC, SELFPAY ==
[2018-11-11 06:38] VITALS: BMI 29.9
--- NOTE | 2019-02-18 07:28 | US_ITS ---
We are attempting to reach DEXTER HENSLEY to discuss findings. An addendum with communication details will be sent when the communication is complete. STUDY: ABDOMINAL ULTRASOUND - RIGHT UPPER QUADRANT REASON FOR VISIT: Female, 63 years old. Right upper quadrant and back pain. Vomiting for one year. TECHNIQUE: Ultrasound evaluation of the right upper quadrant was performed with real-time and static barlow-scale imaging. TECHNICAL QUALITY: Adequate. COMPARISON: None. FINDINGS: Liver: The liver measures 13.2 cm. There is normal echogenicity of the liver. The bile ducts are within normal limits. There is hepatic color flow. The direction of portal flow is hepatopetal. There is no demonstrated mass lesion. Gallbladder: Normal distended gallbladder. The gallbladder wall measures 3.1 mm. There is a positive sonographic Mccall's sign. There is no pericholecystic fluid. Multiple gallstones and sludge within the gallbladder lumen. Common Bile Duct (C.B.D.): The common bile duct measures 6.7 mm. Pancreas: Normal size of the head, body and tail of the pancreas. There is normal echogenicity of the pancreas. There is no demonstrated pancreatic mass or cyst. Right Kidney: Normal size of the right kidney. The right kidney measures 11.3 cm. Normal renal cortex. The right cortex measures 1.0 cm. There is no demonstrated renal mass or cyst. There is no right hydronephrosis. US/Abdomen Limited IMPRESSION: 1. Gallstones with slight gallbladder wall thickening and positive Mccall's sign. The findings suggest acute cholecystitis. 2. Fatty infiltration of liver without mass. Electronically Signed: Ezio Linares DO at 23:20 EDT Tel [phone], Service support ,
== END ==
PROVIDERS: Family Provider Family Medicine; PCP Family Medicine; Referring Provider Family Medicine; Visit Provider Family Medicine
DX: R10.11 Right upper quadrant pain (principal)
CPT/HCPCS: 76705

== ENCOUNTER 2019-03-07 10:28 | Inpatient (IN) | payer BC, SELFPAY ==
[2019-02-22 15:53] VITALS: BMI 29.9
--- NOTE | 2019-03-01 06:35 | EKG12_ITS ---
Test Reason : PRE-OP Blood Pressure : / mmHG Vent. Rate : 079 BPM Atrial Rate : 079 BPM P-R Int : 120 ms QRS Dur : 086 ms QT Int : 370 ms P-R-T Axes : 061 071 066 degrees QTc Int : 424 ms Normal sinus rhythm Normal ECG Confirmed by RAMÓN CHEUNG, RACHANA ([id number]), electronic news gathering editor TAWANA DURAND ([id number]) on 03/03/2019 9:00:16 AM Referred By: Bahman Gill Confirmed By:RACHANA MELGAR MD
[2019-03-01 07:32] LABS: Hematocrit 46.2 % (37-47); Hemoglobin 15.2 g/dl (12.0-15.0); Mean Corp Hgb Conc 32.9 g/gl (32-36); Mean Corpuscular Hgb 30.5 pg (27.0-32.0); Mean Corpuscular Volume 92.8 fL (81-99); Mean Platelet Vol. 11.3 fl (6.2-12.0); Platelet Count 364 K/mm3 (150-450); RBC Distribution Width CV 13.2 % (11.6-14.6); RBC Distribution Width SD 44.7 fl (35.1-43.9); Red Blood Count 4.98 M/mm3 (4.2-5.4); White Blood Count 13.4 K/mm3 (4.4-11.0)
[2019-03-01 07:33] LABS: Scan Indicated on CBC? Y/N NO
[2019-03-01 07:52] LABS: AST(SGOT) 30 U/L (15-37); Alanine Aminotransfer ALT/SGPT 32 U/L (13-56); Albumin, Serum 3.5 g/dL (3.2-5.0); Alkaline Phosphatase 66 U/L (45-117); Anion Gap 6 (5-15); BUN 17 mg/dL (7-18); BUN/Creat Ratio 15.2 RATIO (10-20); Calcium,Total 8.7 mg/dL (8.5-10.1); Chloride 105 mmol/L (98-107); Creatinine, Serum 1.12 mg/dL (0.55-1.02); EST Glomerular Filtration Rate 52 mL/min (>60); Est Glom Filt Rate - Afr Amer 63 mL/min (>60); Globulin 3.5 g/dL (2.2-4.2); Glucose 141 mg/dL (74-106); Sodium Level 139 mmol/L (136-145)
[2019-03-01 08:01] LABS: Hemoglobin A1c 6.6 % (4.2-6.3)
--- NOTE | 2019-03-04 06:37 | HP.PCM_ITS ---
Problem List (1) Biliary colic Status: Acute History and Physical Date of Admission: 03/07/19 MR#:[id number]:[id number] Name: XIN CASTELLANOS Rep #: [id number] : 1955 Provider: Bahman Gill MD Age/Sex: 63/F Location: [facility] Status: Signed Intake Vital Signs 02/22/19 Body Mass Index (BMI) 29.9 02/22/19 Height 5 ft 2 in 02/22/19 Weight: 164 lb 02/22/19 Body Mass Index (BMI) 29.9 02/22/19 Blood Pressure 116/76 02/22/19 Blood Pressure Location Rt brachial 02/22/19 Blood Pressure Position Sitting 02/22/19 Respiratory Rate 14 02/22/19 Pulse Rate 91 02/22/19 Pulse Source Monitor 02/22/19 Temperature 98.5 F 02/22/19 Temperature Source Oral 02/22/19 Pulse Ox 91 02/22/19 Oxygen Delivery Method room air Intake Visit Reasons: GALL STONES - POSITIVE MCCALL'S SIGN Chief Complaint: Here to discuss test results 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 Required: No Is patient in pain?: Yes (Right Flank) Pain scale (1-10): 1 Allergies cat dander Allergy (Verified 02/22/19 15:50) wheezy mold Allergy (Verified 02/22/19 15:50) wheezy pollen extracts Allergy (Verified 02/22/19 15:50) wheezy amoxicillin trihydrate [From Augmentin] Adverse Reaction (Intermediate, Verified 02/22/19 15:50) Nausea potassium clavulanate [From Augmentin] Adverse Reaction (Intermediate, Verified 02/22/19 15:50) Nausea Medications latanoprost 0.005 % eye drops 1 drp OPHTHALMIC QHS 11/11/17 [History Confirmed 02/22/19] sitagliptin 100 mg tablet 100 mg PO DINNER 11/11/17 [History Confirmed 02/22/19] Lisinopril [Zestril] 2.5 mg PO DAILY 01/13/18 [History Confirmed 02/22/19] Metformin HCl [Metformin HCl ER] 1 tab PO DINNER 01/13/18 [History Confirmed 02/22/19] Montelukast [Singulair] 10 mg PO DAILY 01/13/18 [History Confirmed 02/22/19] Omeprazole 1 tab PO QHS 01/13/18 [History Confirmed 02/22/19] nystatin 100,000 unit/mL oral suspension 5 ml MUCOUS MEMBRANE TID #250 ml 04/21/18 [Rx Confirmed 02/22/19] albuterol sulfate HFA 90 mcg/actuation aerosol inhaler 2 puff INHALATION Q4H PRN #1 device 11/11/18 [Rx Confirmed 02/22/19] fluticasone propionate 110 mcg/actuation HFA aerosol inhaler 1 puff INHALATION BID #1 device 11/11/18 [Rx Confirmed 02/22/19] levofloxacin 500 mg tablet 500 mg PO DAILY 02/22/19 [History Confirmed 02/22/19] metronidazole 500 mg tablet 500 mg PO BID 02/22/19 [History Confirmed 02/22/19] prednisone 10 mg tablets in a dose pack mg PO tab 02/22/19 [History Confirmed 02/22/19] PFSH Medical History RUQ abdominal pain (Acute) Right flank pain (Acute) Asthma-COPD overlap syndrome (Chronic) Asthma exacerbation (Acute) Diabetes mellitus, type II (Acute) Overweight (BMI 25.0-29.9) (Chronic) Glaucoma (Chronic) Thrush, oral (Acute) Asthma (Chronic) Chronic bronchitis (Acute) Diabetes type 2, controlled (Chronic) Glaucoma (Chronic) Asthma (Chronic) Surgical History Hx of colonoscopy (Acute) History of cataract surgery (Resolved) H/O tubal ligation (Resolved) Hx of appendectomy (Resolved) Cataracts, bilateral (Chronic) Family History Father Diabetes Social History Smoking Status: Never smoker second hand exposure: No alcohol intake: current alcohol intake frequency: holidays/special occasions only substance use type: does not use caffeine: Yes what type of physical activity do you participate in: walking frequency: 5-6 times per week duration: 30-45 minutes/day HPI HPI HPI: XIN CASTELLANOS, is a 63 F who presents to the office today for for surgical consultation regarding gallbladder disease. The patient is referred by Dr. Nadira Montoya and by Dr. Skip Huizar and a written compromise surgical consult will be returned to them. Patient states that since 2017 she has had for 5 episodes of right flank pain. She states that she is diabetic and that she was initiated on metformin at that time. She assumed that it was a reaction to the metformin. She claims that she typically at night will have right flank pain and then nausea and vomiting. She had her most recent episode as not only having the right flank pain but also nausea and vomiting and right upper quadrant pain. She had eaten steak prior to that episode. She was seen by who thought her symptoms sounded like gallbladder and so at the [facility] on February 18, 2019 a right upper quadrant ultrasound was obtained. The bile ducts were normal. The gallbladder was normally distended. The gallbladder wall measures 3.1 mm. There was felt to be a positive sonographic Mccall sign. There was no pericholecystic fluid. The common bile duct was normal at 6.7 cm. An addended was added by the radiologist who suggested that because of the slight gallbladder wall thickening and the tenderness reported by the tech on doing the procedure that the findings suggested acute cholecystitis. Although he said chandan t the echogenicity of the liver was normal his impression also than included fatty liver. The patient states seemingly a separate episode that occurred approximately 3 days ago with coughing and wheezing and runny nose. She states that she has a chronic asthmatic with COPD. She never smoked cigarettes herself but for 37 years was exposed to secondhand smoke of a 3 pack/day smoker. Because of the acute respiratory onset she was seen by Dr. Huizar and she was placed on omeprazole metronidazole and levofloxacin. I believe the antibiotics were prescribed for the potential of acute cholecystitis. The patient states that she does not currently have abdominal pain. She has discomfort in her right back but nothing to the degree of her episodes. Her primary complaints or concerns are her acute respiratory limitation with her coughing and sneezing and dyspnea on exertion. She also had omeprazole recently added to her armamentarium. She has had 2 children who both had cholecystectomy one for gallstones and one for pain. She has had a previous appendectomy for acute appendicitis. She has not had any additional abdominal surgery HPI HPI HPI: XIN CASTELLANOS, is a 63 F who presents to the office today for ROS General General: No weight change, appetite, fatigue, colon cancer, breast cancer or weakness HEENT HEENT: Yes eye surgery; no difficulty swallowing, eye injury, swollen glands or hoarseness Endo Endocrine: Yes diabetes mellitus; no thyroid disease, thyroid cancer, Hair loss, heat intolerance or cold intolerance Skin Skin: No rash or changing moles Musc Musculoskeletal: No back problems, arthritis, rheumatoid arthritis, gout or joint pain Cardio Cardiovascular: No murmur, pacemaker, heart disease, atrial fibrillation, high blood pressure, heart attack, heart stent, palpitations, shortness of breat with exertion or chest pain Psych Psychiatric: No depression, anxiety or hearing voices Resp Respiratory: No shortness of breath, No sleep apnea, No cough, No COPD, Yes asthma, No emphysema, No wheezing Gastro Gastrointestinal: No abdominal pain, No nausea or vomiting, No diarrhea, No constipation, No blood in stool, No acid reflux, No hemorrhoids, No ulcers, Yes gallbladder problem, No black,tarry stools Matthew Hematologic: No blood thinners, No blood disorders, No bleeding, No anemia, No blood clots Neuro Neurologic: No system reviewed and no additional complaints, except as docu, No as per HPI, No abnormal walking, No abnormal hearing, No abnormal movements, No abnormal speech, No behavioral changes, No burning sensations, No confusion, No seizure-like activity, No unsteadiness, No dizziness, No localized weakness, No frequent falls, No headache(s), No lack of coordination, No loss of vision, No memory loss, No numbness, No other visual disturbances, No radiating pain, No restless legs, No sensory deficit, No fainting, No tingling, No tremor(s), No weakness, No other Exam Const General: cooperative Orientation: alert, awake HENRI Other: Draining erythematous nose requiring frequent tissues Eyes Other: Watery Chest Chest palpation & inspection: normal inspection of the chest Resp Other: Diminished respiratory excursion. Diminished breath sounds in the bases. No distinct wheezes. Cardio Rate: regular rate Rhythm: regular rhythm Heart Sounds: no murmurs GI Other: Overweight, soft, nontender, normal bowel sounds, no gross hepatosplenomegaly, no guarding or rebound Musc Cervical Spine: normal cervical lordosis Neuro General: alert Extrem General: no calf tenderness bilaterally Psych Affect: normal affect Assessment & Plan Problems 1. Asthma-COPD overlap syndrome J44.9 2. Exacerbation of asthma, unspecified asthma severity, unspecified whether persistent J45.901 3. Biliary colic K80.50 4. Calculus of gallbladder with chronic cholecystitis without obstruction K80.10 Plan Pleasant 63-year-old female who appears this moment to have an acute respiratory exacerbation of her asthma. Her clinical exam of her abdomen is currently benign. I would categorize her gallbladder disease as biliary colic, chronic cholecystitis cholelithiasis. I do not believe at this moment that she has an acute surgical abdomen. The patient states that typically when she gets exacerbation of her asthma COPD takes at least 10 days for resolution. Unfortunately I would think that if we attempted to emergently operate on her at this point that there would be a strong potential for respiratory compromise and the need for postoperative ventilation. Fortunately her abdominal exam is benign. I would propose ongoing medical maximization of her respiratory care. I have described to her the technique, benefit, risk and alternatives of a laparoscopic cholecystectomy with cholangiography. She has had an opportunity to ask and have questions answered. We will tentatively schedule that 10-14 days in the future. In the interim she will remain on a low-fat diet. She certainly can contact me for any exacerbation of abdominal discomfort. If she is still having pulmonary compromise at that point then one would need to consider whether a cholecystostomy tube percutaneously is placed to temporize her situation. I very much appreciate the kind opportunity of assisting with her surgical care. As noted we will schedule and proceed as anticipated. CC: Dr Nadira Montoya and Dr Skip Gill M.D., F.A.C.S. Coding Level of Care Code Comprehensive,moderate Diagnoses Asthma-COPD overlap syndrome J44.9 Exacerbation of asthma, unspecified asthma severity, unspecified whether persistent J45.901 ??Asthma severity: unspecified severity ??Asthma persistence: unspecified Biliary colic K80.50 Calculus of gallbladder with chronic cholecystitis without obstruction K80.10 ??Cholelithiasis location: gallbladder ??Biliary obstruction: without biliary obstruction 02/22/19 1620 <Electronically signed by Bahman Gill MD> Date Bahman Shultz Signature: Date (if applicable) CC: Nadira Montoya MD; Skip Huizar DO ~ I have re-examined the patient. There are no clinical changes since date of exam.
[2019-03-07] VITALS (12 sets, daily range): BP systolic 96–128; BP diastolic 58–87; PULSE 73–87; RESP 16–18; TEMP 36.4–37.1; O2SAT 92–99; BMI 28.2
[2019-03-07 08:26] LABS: Bedside Glucose 146 mg/dL (70-110)
--- NOTE | 2019-03-07 08:45 | GALL_PTH ---
PATIENT: XIN CASTELLANOS LOC: MS3 U#:[id number] AGE/SX: 63/F ROOM: MS319 RE03/08/[address]: Dr. Bahman Gill MD : [id number] BED: 1 DIS: 03/10/2019 SPEC #: [id number] RECD: 03/07/19 11:31 STATUS: FRANCIA NEILJoao #: [id number] ZOHAIB: 03/07/19 08:[address]: Bahman Gill DEPT: SURGICAL PATHOLOGY RECD BY: Nabil Bond ENTERED: 03/07/19 12:44 SP TYPE: DINA ABDULLAHI DR: Dr. Nadira Montoya MD Tissues: Gallbladder, NOS Procedures: Surgery Specimen Level III HEADER OPERATION: Laparoscopic cholecystectomy with IOC PRE-OP DIAGNOSIS: Calculus of gallbladder with chronic cholecystitis without obstruction TISSUE SUBMITTED: Gallbladder MICROSCOPIC DIAGNOSIS Gallbladder, cholecystectomy: Chronic cholecystitis and cholelithiasis. A minute pericystic lymph node with reactive changes. SJ:berto 03/08/19 MICROSCOPIC DESCRIPTION Slides are reviewed. GROSS DESCRIPTION Received is one container labeled with the patient's name and designated gallbladder. The specimen consists of a ruptured gallbladder measuring 6.7 x 3.1 x 1.7 cm. The serosal surface is reddish-pink with adherent blood clot and fibrous adhesion. A brown granular and bloody area is present, grossly consistent with the hepatic reflection. The gallbladder is opened to reveal numerous mixed pigmented calculi ranging in diameter from 0.1 to 1 cm. The mucosal surface of the gallbladder is pink and velvety. Grossly, no mucosal lesion is identified. Sections through the cystic duct demonstrate a patent lumen containing multiple pigmented calculi. The gallbladder wall is uniform (0.2 cm). [employer] sections of the gallbladder and the cystic duct are submitted in one cassette. / CE:berto 03/07/19 TC:3 CPT: 27277
--- NOTE | 2019-03-07 08:54 | PCM.DC.GS ---
<Bahman Gill - Last Filed: 03/10/19 06:06> Discharge Diet: Light diet - advance as tolerated - if you have questions about your diet instructions, please talk to you doctor. Discharge Activity: May Not Drive - for 3-5 days or while taking narcotic pain medicine. May shower in (days): 3 Lifting Restrictions: 10 pounds Call your doctor if your incision/area has: Continuous Slow Oozing, Sudden Increased Bleeding, Increased Pain/ Swelling, Increased Redness, Foul Smelling Discharge Call your doctor if you observe: Fever of 101 or Higher Suture Line Care: Avoid Pulling/Pushing, Avoid Pinching/Bending Additional Dressing/Incision Instructions:: Change or remove dressing in 4 days. Leave steri-strips in place for 1 week. Allergies/Adverse Reactions: Allergies cat dander Allergy (Verified 02/28/19 09:05) wheezy mold Allergy (Verified 02/28/19 09:05) wheezy pollen extracts Allergy (Verified 02/28/19 09:05) wheezy amoxicillin trihydrate [From Augmentin] Adverse Reaction (Intermediate, Verified 02/28/19 09:05) Nausea potassium clavulanate [From Augmentin] Adverse Reaction (Intermediate, Verified 02/28/19 09:05) Nausea Medications to take at Discharge latanoprost 0.005 % eye drops 1 drp OPHTHALMIC QHS 11/11/17 sitagliptin 100 mg tablet 100 mg PO DINNER 11/11/17 Lisinopril [Zestril] 2.5 mg PO QHS 01/13/18 Metformin HCl [Metformin HCl ER] 1 tab PO DINNER 01/13/18 Montelukast [Singulair] 10 mg PO QHS 01/13/18 Omeprazole 1 tab PO QHS 01/13/18 albuterol sulfate HFA 90 mcg/actuation aerosol inhaler 2 puff INHALATION Q4H PRN #1 device 11/11/18 Fluticasone Propionate [Flovent Hfa] 1 puff INHALATION BID 02/28/19 Orders to be completed after discharge: 12 Lead EKG [CVS] Time Frame: 02/28/19, Facility: [facility], Location: Cardiovascular Services Hemoglobin A1c Time Frame: 02/28/19, Location: Laboratory CBC-Complete Blood Cnt No Diff Time Frame: 02/28/19, Location: Laboratory Comprehensive Metabolic Profil Time Frame: 02/28/19, Location: Laboratory Primary Care Physician: Nadira Montoya MD [Primary Care Provider] - Test Results: Test results from this visit will be discussed in further detail at your follow-up appointment, if applicable. Please Follow Up With: Bahman Gill MD - [phone] When: Call tomorrow for appt tom or Thursday pending output <Leatha Duffy - Last Filed: 03/10/19 07:17> Test Results: Test results from this visit will be discussed in further detail at your follow-up appointment, if applicable.
[2019-03-07] MEDS: Bupivacaine Mpf 0.5% 30 ML VIAL (10:27)
--- NOTE | 2019-03-07 10:38 | OP.PCM_ITS ---
Problem List (1) Biliary colic Status: Acute Report of Operation Date of Procedure: 03/07/19 Pre-Operative Diagnosis: Chronic cholecystitis cholelithiasis Post-Operative Diagnosis: Severe chronic cholecystitis cholelithiasis Surgery/Procedure Performed:: Laparoscopic cholecystectomy Description of Surgical Findings:: Timeout and informed consent was obtained. 63-year-old female with a R eplacement table underwent general endotracheal intubation anesthesia. Clindamycin 900 g were given intravenously preoperatively. The abdomen was sterilely prepped and draped. Because of a previous infraumbilical incision I made a supraumbilical incision vertically. 0.5% Marcaine was used as local anesthetic and throughout the procedure total of 30 cc was used. Skin sites were pre-anesthetized. Sharp dissection carried down through the subcutaneous tissues. Holding sutures of 0 Vicryl placed. Varies needle inserted. Saline drop test performed. The abdomen was insufflated with CO2 to a pressure of 10 mmHg pressure. Sonali trocar inserted 10 mm scope inserted no ventral trocar injuries. The abdomen was inspected with no evidence of any trocar injuries. Later in the procedure I increased the pressure to 50 mmHg pressure. 5 mm trochars were placed in the epigastric mid abdomen right upper quadrant. The gallbladder had some light adhesions of omentum these were dissected free. The gallbladder was distracted and though slightly thick-walled the majority information was directly at the infundibular area. Dissection here was incredibly tedious. The patient bled readily from all surfaces even the skin incisions for the trochars. It became apparent that the inflammatory change was so dramatic that I was going to need to do a dome down approach. I grabbed the dome of the gallbladder and used to hook cautery and started dissecting the peritoneum free. The liver was quite fat replaced and very fragile. I then placed a liver retractor to further assist as the gallbladder literally was carefully gently teased free from the liver. Where needed hemostasis was obtained with electrocautery but the tissue was very fragile. Finally had the gallbladder dissected free down to the injury to the infundibular area. I felt confident to identify the cystic artery and I secured that twice proximally prior to transecting it. I now has a very thickened infundibulum. I looked in the material back. I elected not to inject a cholangiogram for fear of pushing stones further on. I felt that I had to clean anatomy and that I was still nicely distal from the common bile duct. Having achieved that then I placed a 0 Vicryl Endoloop and a 0 PDS Endoloop. Both of those seem to secure quite nicely. I transected the gallbladder immediately placed into the bag there was no stone spillage. Bile spillage. During that dissection by the procedure there was some active bleeding from the liver. This was initially restrained by using the fibula. I then removed the fibular and remove the gallbladder. Put trochars back and hemostasis was much better achieved. I did not see any current active bleeding from the liver bed for any bile leak. The right upper quadrant was irrigated and aspirated free. I elected to treat the raw liver bed with FloSeal and applied that carefully so as to cover the entire liver bed. I then placed a 15 round NARCISA drain exiting through the right upper quadrant. I shortened it to length. I secured to the skin with interrupted 3-0 nylon. Good positioning in the subhepatic position was achieved. Again the liver bed area was inspected was noted to be hemostatic. Trochars were removed under visualization the abdomen was allowed to deflate of the CO2. The fascia at the umbilicus was approximated with a couple [id number] sutures of 0 Vicryl. Skin edges approximated interrupted 4-0 Monocryl subdermal stitches. Steri- Strips and Telfa and OpSite dressings applied. Sponge and instrument and needle counts reported the surgery to be correct. She tolerated the procedure well and was taken to the recovery area in satisfactory condition without apparent complication. Specimen gallbladder. Drains 15 round NARCISA. Blood loss 100 cc. Bahman Gill M.D., F.A.C.S. Type of Anesthesia:: General Anesthesiologist: Marissa Huffman
[2019-03-07] MEDS: Sugammadex Sodium 200 MG/2 ML VIAL IV (10:40)
[2019-03-07 11:01] LABS: Bedside Glucose 235 mg/dL (70-110)
[2019-03-07] MEDS: Lactated Ringers 1,000 ML 60 ML IV (12:20)
[2019-03-07 17:01] LABS: Bedside Glucose 278 mg/dL (70-110)
--- NOTE | 2019-03-07 17:49 | PCM.PN.BLA ---
Progress Note Pt resting in bed. Has not ambulated yet Tolerating clears NARCISA: minimal drainage Plan; continued care. decrease IVF, need to mobilize pt--ambulate in halls tonight Need to stress pulmonary toilet and IS Pt at significant pulmonary risk
[2019-03-07] MEDS: Morphine 4 MG/ML Syringe IV (19:19)
[2019-03-07] MEDS: 0.9% NaCl Peripheral Flush Adult/Peds IV (19:19)
[2019-03-07] MEDS: Latanoprost 0.005% 1 Bottle 1 DRP OPHTHALMIC (21:54)
[2019-03-07] MEDS: Lisinopril 2.5 MG Tablet PO (21:55)
[2019-03-07] MEDS: Pantoprazole Sodium 40 MG Tablet PO (21:55)
[2019-03-07] MEDS: HYDROcodone Bitartrate/Apap 5/325 Tablet PO (21:56)
[2019-03-07 23:56] LABS: Bedside Glucose 247 mg/dL (70-110)
[2019-03-08] VITALS (10 sets, daily range): BP systolic 92–137; BP diastolic 46–74; PULSE 64–95; RESP 14–20; TEMP 36.1–36.9; O2SAT 92–100
[2019-03-08] MEDS: Morphine 2 MG/ML Syringe IV (01:49)
[2019-03-08] MEDS: Ondansetron 4 MG/2 ML Vial IV (02:14)
--- NOTE | 2019-03-08 03:56 | NURSING ---
Addendum entered by Judit Pruett 03/08/19 04:18: 03/08/19 0415 Ambulated two laps around unit with standby assist. Original Note: 03/07/19 2115 Ambulated two laps around unit with standby assist.
--- NOTE | 2019-03-08 05:52 | NM_ITS ---
CLINICAL: Female, 63 years old. Post cholecystectomy. Check for bile leak. NUCLEAR BILIARY SCAN TECHNIQUE: Following the intravenous administration of 5.3 mCi of Tc Mebrofenin, hepatobiliary images was performed. COMPARISON STUDIES : NM - None. CR - Not available for review at this time. CT - No post cholecystectomy CT is available for comparison or correlation. MR - Not available for review at this time. US - No postcholecystectomy ultrasound is available for comparison or correlation. FINDINGS: Relatively prompt and homogeneous radiopharmaceutical concentration is noted by a normal sized liver. There are no parenchymal defects noted.. Radiotracer activity activity is identified at the cholecystectomy site 12 minutes post radiopharmaceutical administration. Small bowel activity is identified at 16 minutes post radiopharmaceutical administration. Washout of the radiopharmaceutical by the hepatic parenchyma occurs in a normal fashion on qualitative inspection. NM/Hepatobilliary Imaging IMPRESSION: Positive for bile leak at the cholecystectomy site 12 minutes post radiopharmaceutical administration. Electronically Signed: Zachary Clark MD at 8:32 EDT , Service support ,
--- NOTE | 2019-03-08 05:53 | PCM.PN.SRG ---
Subjective: Pt notes epigastric discomfort. No nausea Has been able to walk - Physical Exam Lungs: - - clear apices Abdomen: Bowel Sounds Present, Soft, Non Tender - NARCISA sudden increase on output Vital Signs Temp Pulse Resp BP Pulse Ox 97.6 F L 64 20 H 137/60 H 92 03/08/19 01:59 03/08/19 01:59 03/08/19 01:59 03/08/19 01:59 03/08/19 01:59 Oxygen Flow Rate (L/min) 3 Oxygen Delivery Method Room Air Weight: 159 lb 6.307 oz Body Mass Index (BMI) 28.2 Finger Stick Blood Glucose 235 Intake and Output for Last 24 Hours 03/06/19 03/07/19 03/08/19 23:59 23:59 23:59 Intake Total 3417 / 3417 Output Total 1275 / 1275 Balance 2142 / 2142 Laboratory Tests Past 24 Hrs 03/08/19 05:24 Sodium Pending Potassium Pending Chloride Pending Carbon Dioxide Pending Anion Gap Pending BUN Pending Creatinine Pending Est GFR (MDRD) Af Amer Pending Est GFR (MDRD) Non-Af Pending BUN/Creatinine Ratio Pending Glucose Pending Calcium Pending Total Bilirubin Pending AST Pending ALT Pending Alkaline Phosphatase Pending Total Protein Pending Albumin Pending POC Glucose 03/07/19 03/07/19 03/07/19 22:04 16:44 10:56 POC Glucose 247 H 278 H 235 H 03/07/19 07:48 POC Glucose 146 H Medical Necessity - Tobacco Use Smoking Status: Never smoker Assessment/Plan All Active Problems (Last Reviewed 02/22/19 @ 15:52 by Emma Emery) Biliary colic (Acute) Hx of colonoscopy (Acute) RUQ abdominal pain (Acute) Right flank pain (Acute) History of cataract surgery (Resolved) Asthma exacerbation (Acute) Diabetes mellitus, type II (Acute) Thrush, oral (Acute) Chronic bronchitis (Acute) H/O tubal ligation (Resolved) Hx of appendectomy (Resolved) Sudden increase in dark NARCISA output Will check HIDA scan assessing for possible liver leak. The GB bed was very friable at time of surgery Keep NPO incase ERCP required
[2019-03-08 06:11] LABS: ALB/GLOB Ratio 0.9 RATIO (0.9-2.4); AST(SGOT) 51 U/L (15-37); Alanine Aminotransfer ALT/SGPT 59 U/L (13-56); Albumin, Serum 3.2 g/dL (3.2-5.0); Alkaline Phosphatase 47 U/L (45-117); Anion Gap 7 (5-15); BUN 9 mg/dL (7-18); BUN/Creat Ratio 10.7 RATIO (10-20); Calcium,Total 9.2 mg/dL (8.5-10.1); Chloride 104 mmol/L (98-107); Creatinine, Serum 0.84 mg/dL (0.55-1.02); EST Glomerular Filtration Rate 72 mL/min (>60); Est Glom Filt Rate - Afr Amer 87 mL/min (>60); Estimated Creatinine Clearance 55.97 ml/min; Globulin 3.4 g/dL (2.2-4.2); Glucose 180 mg/dL (74-106); Potassium 5.1 mmol/L (3.5-5.1); Protein, Total 6.6 g/dL (6.4-8.2); Sodium Level 140 mmol/L (136-145)
[2019-03-08 06:56] LABS: Bedside Glucose 161 mg/dL (70-110)
[2019-03-08] MEDS: Lactated Ringers 1,000 ML 30 ML IV (08:42)
--- NOTE | 2019-03-08 09:58 | PCM.PN.SRG ---
Subjective: Patient is complaining of the right upper quadrant pain - Physical Exam General: Alert, Oriented x3 Neck: No JVD Lungs: Normal air movement Abdomen: Soft, Non-Distended, - - NARCISA sero-bilious Vital Signs Temp Pulse Resp BP Pulse Ox 98.4 F 70 18 96/56 L 96 03/08/19 09:42 03/08/19 09:42 03/08/19 09:42 03/08/19 09:42 03/08/19 09:42 Oxygen Flow Rate (L/min) 3 Oxygen Delivery Method Room Air Weight: 159 lb 6.307 oz Body Mass Index (BMI) 28.2 Finger Stick Blood Glucose 235 Intake and Output for Last 24 Hours 03/06/19 03/07/19 03/08/19 23:59 23:59 23:59 Intake Total 3417 / 3417 565.9 / 565.9 Output Total 1275 / 1275 805 / 805 Balance 2142 / 2142 -239.1 / -239.1 Laboratory Tests Past 24 Hrs 03/08/19 05:24 Sodium 140 Potassium 5.1 Chloride 104 Carbon Dioxide 29.0 Anion Gap 7 BUN 9 Creatinine 0.84 Estim Creat Clear Calc 55.97 Est GFR (MDRD) Af Amer 87 Est GFR (MDRD) Non-Af 72 BUN/Creatinine Ratio 10.7 Glucose 180 H Calcium 9.2 Total Bilirubin 0.50 AST 51 H ALT 59 H Alkaline Phosphatase 47 Total Protein 6.6 Albumin 3.2 Globulin 3.4 Albumin/Globulin Ratio 0.9 POC Glucose 03/08/19 03/07/19 03/07/19 06:48 22:04 16:44 POC Glucose 161 H 247 H 278 H 03/07/19 10:56 POC Glucose 235 H Medical Necessity - Tobacco Use Smoking Status: Never smoker Assessment/Plan All Active Problems (Last Reviewed 02/22/19 @ 15:52 by Emma Emery) Biliary colic (Acute) Hx of colonoscopy (Acute) RUQ abdominal pain (Acute) Right flank pain (Acute) History of cataract surgery (Resolved) Asthma exacerbation (Acute) Diabetes mellitus, type II (Acute) Thrush, oral (Acute) Chronic bronchitis (Acute) H/O tubal ligation (Resolved) Hx of appendectomy (Resolved) 63-year-old female status post laparoscopic cholecystectomy 1. Patient had bilious drainage in her ANRCISA this morning. She was sent for HIDA scan which confirmed a biliary leak. ERCP was recommended for stent placement. 2. I explained the procedure in detail to the patient. I explained the risks including but not limited to bleeding, infection, perforation of the bile duct or bowel, pancreatitis. Patient understands the risks and is willing to proceed. I explained that in a great majority of cases this stops the bile leak. I have also explained that she would require a repeat ERCP in 6 to 8 weeks. Homer Lara MD Pager: [facility] [address] [place] [address], [address] [place] [address] Office:
--- NOTE | 2019-03-08 13:05 | OP.ENDO_ITS ---
03/08/2019 Nadira Montoya [facility] [address] [address] Re : ERCP procedure for Sandra Joseph Dear Dr. Montoya This procedure was performed on Friday, March 08, 2019. My impressions and recommendations are as follows: Impressions : - The ERCP was aborted due to the extreme difficulty of the procedure. Recommendations : - Transfer patient to another hospital for ERCP by ammonia box tender at high volume center. My findings are described in the full procedure note, which is enclosed. If I can be of further assistance, please feel free to contact me at Doctor phone number(s): , Work: . Sincerely, Homer Lara MD 03/08/2019 1:04:45 PM This report has been signed electronically.
[2019-03-08 13:41] LABS: Bedside Glucose 255 mg/dL (70-110)
--- NOTE | 2019-03-08 14:15 | PCM.DC.SUM ---
Discharge Date and Diagnosis Date of Admission: 03/07/19 Date of Discharge: 03/09/19 - Primary Discharge Diagnosis Biliary colic Cholelithiasis Bile leak - Secondary Discharge Diagnosis Chronic Problems (Last Reviewed 02/22/19 @ 15:52 by Emma Emery) Asthma-COPD overlap syndrome (Chronic) Overweight (BMI 25.0-29.9) (Chronic) Glaucoma (Chronic) Asthma (Chronic) Diabetes type 2, controlled (Chronic) Cataracts, bilateral (Chronic) 10/2018 Glaucoma (Chronic) Asthma (Chronic) Hospital Course and Treatment Imaging Results: 03/08/19 05:52 Hepatobilliary Imaging [NM] Stat 03/08/19 11:00 O.R. Fluoro for C-Arm [RAD] Routine Operations: cholecystecomy, ERCP Summary of Care Provided: The patient is a 63 year old F who presented for an elective cholecystectomy. Dr. Gill performed a laparoscopic cholecystectomy on 03/07/19. Patient tolerated the procedure well. Patient had an impressive amount of inflammation at the gallbladder site. A dome down approach was taken. Patient continued to ooze, fibular and Floseal was used. Patient had a NARCISA drain placed. Serosanguineous fluid was noted last night. This morning, patient's NARCISA drain output had picked up. It was also noted the fluid was much darker and more consistent with old blood or bile. HIDA scan was obtained demonstrating a bile leak. Dr. Lara performed an ERCP today which was aborted due to extreme difficulty of the procedure. Gastroenterology at [facility] was contacted and is willing to perform a repeat ERCP procedure on 03/09/19. Patient will return to [facility] after the procedure. - Physical Exam General: Alert, Oriented x3, Cooperative Abdomen: Soft, Tender - RUQ, - - Incisions c/d/i. NARCISA drain intact. Vital Signs Temp Pulse Resp BP Pulse Ox 98.0 F 76 14 107/58 L 97 03/08/19 14:00 03/08/19 14:00 03/08/19 14:00 03/08/19 14:00 03/08/19 14:00 Oxygen Flow Rate (L/min) 2 Oxygen Delivery Method Nasal Cannula Weight: 159 lb 6.307 oz Body Mass Index (BMI) 28.2 Finger Stick Blood Glucose 255 Intake and Output for Last 24 Hours 0503/07/19 03/08/19 23:59 23:59 23:59 Intake Total 3417 / 3417 2986.9 / 2986.9 Output Total 1275 / 1275 1285 / 1285 Balance 2142 / 2142 1701.9 / 1701.9 Laboratory Tests Past 24 Hrs 03/08/19 05:24 Sodium 140 Potassium 5.1 Chloride 104 Carbon Dioxide 29.0 Anion Gap 7 BUN 9 Creatinine 0.84 Estim Creat Clear Calc 55.97 Est GFR (MDRD) Af Amer 87 Est GFR (MDRD) Non-Af 72 BUN/Creatinine Ratio 10.7 Glucose 180 H Calcium 9.2 Total Bilirubin 0.50 AST 51 H ALT 59 H Alkaline Phosphatase 47 Total Protein 6.6 Albumin 3.2 Globulin 3.4 Albumin/Globulin Ratio 0.9 POC Glucose 03/08/19 03/08/19 03/07/19 13:37 06:48 22:04 POC Glucose 255 H 161 H 247 H 03/07/19 16:44 POC Glucose 278 H Discharge Diet: Light diet - advance as tolerated - if you have questions about your diet instructions, please talk to you doctor. Discharge Activity: May Not Drive - for 3-5 days or while taking narcotic pain medicine. May shower in (days): 1 Call your doctor if your incision/area has: Continuous Slow Oozing, Sudden Increased Bleeding, Increased Pain/ Swelling, Increased Redness, Foul Smelling Discharge Call your doctor if you observe: Fever of 101 or Higher Suture Line Care: Avoid Pulling/Pushing, Avoid Pinching/Bending Additional Dressing/Incision Instructions:: Change or remove dressing in 4 days. Leave steri-strips in place for 1 week. Home Medications: Medications to take at Discharge latanoprost 0.005 % eye drops 1 drp OPHTHALMIC QHS 11/11/17 sitagliptin 100 mg tablet 100 mg PO DINNER 11/11/17 Lisinopril [Zestril] 2.5 mg PO QHS 01/13/18 Metformin HCl [Metformin HCl ER] 1 tab PO DINNER 01/13/18 Montelukast [Singulair] 10 mg PO DAILY 01/13/18 Omeprazole 1 tab PO QHS 01/13/18 albuterol sulfate HFA 90 mcg/actuation aerosol inhaler 2 puff INHALATION Q4H PRN #1 device 11/11/18 Fluticasone Propionate [Flovent Hfa] 1 puff INHALATION BID 02/28/19 Hydrocodone Bitart/Apap 5-325 [[place] 5MG-325MG] 1 tablet PO Q4H PRN PRN 3 Days #10 tablet 03/07/19 Following Prescrptions Were Given to Patient: Hydrocodone Bitart/Apap 5-325 [[place] 5MG-325MG] 1 tablet PO Q4H PRN PRN 3 Days #10 tablet PRN Reason: Pain Other Amb Orders: 12 Lead EKG [CVS] Time Frame: 02/28/19, Facility: [facility], Location: Cardiovascular Services Hemoglobin A1c Time Frame: 02/28/19, Location: Laboratory CBC-Complete Blood Cnt No Diff Time Frame: 02/28/19, Location: Laboratory Comprehensive Metabolic Profil Time Frame: 02/28/19, Location: Laboratory Primary Care Physician: Nadira Montoya MD [Primary Care Provider] - Please Follow Up With: Bahman Gill MD - [phone] When: Call to make an appointment to be seen in about 10 days. Disposition: Acute care Hospital Minutes spent on discharge:: 15 Patient Condition:: Stable Medical Necessity - Tobacco Use Smoking Status: Never smoker Meaningful Use Info Meaningful Use Diagnoses (Choose all that apply): None applicable Code Visit Inpatient E&M: 84832 Disch Hosp - No charge
--- NOTE | 2019-03-08 14:20 | DS.PCM_ITS ---
Discharge Date and Diagnosis Date of Admission: 03/07/19 Date of Discharge: 03/09/19 - Primary Discharge Diagnosis Biliary colic Cholelithiasis Bile leak - Secondary Discharge Diagnosis Chronic Problems (Last Reviewed 02/22/19 @ 15:52 by Emma Emery) Asthma-COPD overlap syndrome (Chronic) Overweight (BMI 25.0-29.9) (Chronic) Glaucoma (Chronic) Asthma (Chronic) Diabetes type 2, controlled (Chronic) Cataracts, bilateral (Chronic) 10/2018 Glaucoma (Chronic) Asthma (Chronic) Hospital Course and Treatment Imaging Results: 03/08/19 05:52 Hepatobilliary Imaging [NM] Stat 03/08/19 11:00 O.R. Fluoro for C-Arm [RAD] Routine Operations: cholecystecomy, ERCP Summary of Care Provided: The patient is a 63 year old F who presented for an elective cholecystectomy. Dr. Gill performed a laparoscopic cholecystectomy on 03/07/19. Patient tolerated the procedure well. Patient had an impressive amount of inflammation at the gallbladder site. A dome down approach was taken. Patient continued to ooze, fibular and Floseal was used. Patient had a NARCISA drain placed. Serosanguineous fluid was noted last night. This morning, patient's NARCISA drain output had picked up. It was also noted the fluid was much darker and more consistent with old blood or bile. HIDA scan was obtained demonstrating a bile leak. Dr. Lara performed an ERCP today which was aborted due to extreme difficulty of the procedure. Gastroenterology at [facility] was contacted and is willing to perform a repeat ERCP procedure on 03/09/19. Patient will return to [facility] after the procedure. - Physical Exam General: Alert, Oriented x3, Cooperative Abdomen: Soft, Tender - RUQ, - - Incisions c/d/i. NARCISA drain intact. Vital Signs Temp Pulse Resp BP Pulse Ox 98.0 F 76 14 107/58 L 97 03/08/19 14:00 03/08/19 14:00 03/08/19 14:00 03/08/19 14:00 03/08/19 14:00 Oxygen Flow Rate (L/min) 2 Oxygen Delivery Method Nasal Cannula Weight: 159 lb 6.307 oz Body Mass Index (BMI) 28.2 Finger Stick Blood Glucose 255 Intake and Output for Last 24 Hours 0503/07/19 03/08/19 23:59 23:59 23:59 Intake Total 3417 / 3417 2986.9 / 2986.9 Output Total 1275 / 1275 1285 / 1285 Balance 2142 / 2142 1701.9 / 1701.9 Laboratory Tests Past 24 Hrs 03/08/19 05:24 Sodium 140 Potassium 5.1 Chloride 104 Carbon Dioxide 29.0 Anion Gap 7 BUN 9 Creatinine 0.84 Estim Creat Clear Calc 55.97 Est GFR (MDRD) Af Amer 87 Est GFR (MDRD) Non-Af 72 BUN/Creatinine Ratio 10.7 Glucose 180 H Calcium 9.2 Total Bilirubin 0.50 AST 51 H ALT 59 H Alkaline Phosphatase 47 Total Protein 6.6 Albumin 3.2 Globulin 3.4 Albumin/Globulin Ratio 0.9 POC Glucose 03/08/19 03/08/19 03/07/19 13:37 06:48 22:04 POC Glucose 255 H 161 H 247 H 03/07/19 16:44 POC Glucose 278 H Discharge Diet: Light diet - advance as tolerated - if you have questions about your diet instructions, please talk to you doctor. Discharge Activity: May Not Drive - for 3-5 days or while taking narcotic pain medicine. May shower in (days): 1 Call your doctor if your incision/area has: Continuous Slow Oozing, Sudden Increased Bleeding, Increased Pain/ Swelling, Increased Redness, Foul Smelling Discharge Call your doctor if you observe: Fever of 101 or Higher Suture Line Care: Avoid Pulling/Pushing, Avoid Pinching/Bending Additional Dressing/Incision Instructions:: Change or remove dressing in 4 days. Leave steri-strips in place for 1 week. Home Medications: Medications to take at Discharge latanoprost 0.005 % eye drops 1 drp OPHTHALMIC QHS 11/11/17 sitagliptin 100 mg tablet 100 mg PO DINNER 11/11/17 Lisinopril [Zestril] 2.5 mg PO QHS 01/13/18 Metformin HCl [Metformin HCl ER] 1 tab PO DINNER 01/13/18 Montelukast [Singulair] 10 mg PO DAILY 01/13/18 Omeprazole 1 tab PO QHS 01/13/18 albuterol sulfate HFA 90 mcg/actuation aerosol inhaler 2 puff INHALATION Q4H PRN #1 device 11/11/18 Fluticasone Propionate [Flovent Hfa] 1 puff INHALATION BID 02/28/19 Hydrocodone Bitart/Apap 5-325 [[place] 5MG-325MG] 1 tablet PO Q4H PRN PRN 3 Days #10 tablet 03/07/19 Following Prescrptions Were Given to Patient: Hydrocodone Bitart/Apap 5-325 [[place] 5MG-325MG] 1 tablet PO Q4H PRN PRN 3 Days #10 tablet PRN Reason: Pain Other Amb Orders: 12 Lead EKG [CVS] Time Frame: 02/28/19, Facility: [facility], Location: Cardiovascular Services Hemoglobin A1c Time Frame: 02/28/19, Location: Laboratory CBC-Complete Blood Cnt No Diff Time Frame: 02/28/19, Location: Laboratory Comprehensive Metabolic Profil Time Frame: 02/28/19, Location: Laboratory Primary Care Physician: Nadira Montoya MD [Primary Care Provider] - Please Follow Up With: Bahman Gill MD - [phone] When: Call to make an appointment to be seen in about 10 days. Disposition: Acute care Hospital Minutes spent on discharge:: 15 Patient Condition:: Stable Medical Necessity - Tobacco Use Smoking Status: Never smoker Meaningful Use Info Meaningful Use Diagnoses (Choose all that apply): None applicable Code Visit Inpatient E&M: 60008 Disch Hosp - No charge
[2019-03-08 17:40] LABS: Bedside Glucose 237 mg/dL (70-110)
[2019-03-08] MEDS: Budesonide Respules 0.5 MG/2 ML AMPUL.NEB. INHALATION (19:08)
[2019-03-08] MEDS: HYDROcodone Bitartrate/Apap 5/325 Tablet PO (20:40)
[2019-03-08] MEDS: Latanoprost 0.005% 1 Bottle 1 DRP OPHTHALMIC (21:18)
[2019-03-08] MEDS: Montelukast 10 MG Tablet PO (21:18)
[2019-03-08] MEDS: Pantoprazole Sodium 40 MG Tablet PO (21:18)
[2019-03-08] MEDS: Lisinopril 2.5 MG Tablet PO (21:19)
[2019-03-09 03:00] VITALS: BP 118/60; PULSE 64; RESP 16; TEMP 36.7; O2SAT 98
[2019-03-09] MEDS: Morphine 2 MG/ML Syringe IV ×3 (03:29→08:15)
--- NOTE | 2019-03-09 06:02 | PCM.PN.SRG ---
Subjective: Pt doing well, no abdominal pain - Physical Exam Lungs: Clear to auscultation Abdomen: Bowel Sounds Present, Soft, Non Tender - Bilious NARCISA output Vital Signs Temp Pulse Resp BP Pulse Ox 98.0 F 64 16 118/60 98 03/09/19 03:00 03/09/19 03:00 03/09/19 03:00 03/09/19 03:00 03/09/19 03:00 Oxygen Flow Rate (L/min) 2 Oxygen Delivery Method Room Air Weight: 159 lb 6.307 oz Body Mass Index (BMI) 28.2 Finger Stick Blood Glucose 255 Intake and Output for Last 24 Hours 03/07/19 03/08/19 03/09/19 23:59 23:59 23:59 Intake Total 3417 / 3417 4025.9 / 4025.9 Output Total 1275 / 1275 2155 / 2155 35 / 35 Balance 2142 / 2142 1870.9 / 1870.9 -35 / -35 Laboratory Tests Past 24 Hrs 03/08/19 05:24 Sodium 140 Potassium 5.1 Chloride 104 Carbon Dioxide 29.0 Anion Gap 7 BUN 9 Creatinine 0.84 Estim Creat Clear Calc 55.97 Est GFR (MDRD) Af Amer 87 Est GFR (MDRD) Non-Af 72 BUN/Creatinine Ratio 10.7 Glucose 180 H Calcium 9.2 Total Bilirubin 0.50 AST 51 H ALT 59 H Alkaline Phosphatase 47 Total Protein 6.6 Albumin 3.2 Globulin 3.4 Albumin/Globulin Ratio 0.9 POC Glucose 03/08/19 03/08/19 03/08/19 17:10 13:37 06:48 POC Glucose 237 H 255 H 161 H Medical Necessity - Tobacco Use Smoking Status: Never smoker Assessment/Plan All Active Problems (Last Reviewed 02/22/19 @ 15:52 by Emma Emery) Biliary colic (Acute) Hx of colonoscopy (Acute) RUQ abdominal pain (Acute) Right flank pain (Acute) History of cataract surgery (Resolved) Asthma exacerbation (Acute) Diabetes mellitus, type II (Acute) Thrush, oral (Acute) Chronic bronchitis (Acute) H/O tubal ligation (Resolved) Hx of appendectomy (Resolved) Transfer to [facility] for ERCP/stent and return to [place] for then hopeful discharge home
[2019-03-09 06:38] VITALS: PULSE 71; RESP 18; O2SAT 92
[2019-03-09] MEDS: Budesonide Respules 0.5 MG/2 ML AMPUL.NEB. INHALATION ×2 (06:38→20:13)
[2019-03-09] MEDS: 0.9% NaCl Peripheral Flush Adult/Peds IV ×2 (07:59→08:15)
[2019-03-09] MEDS: Lactated Ringers 1,000 ML 30 ML IV (08:16)
[2019-03-09 09:00] VITALS: BP 98/51; PULSE 70; RESP 14; TEMP 36.7; O2SAT 100
--- NOTE | 2019-03-09 10:00 | NURSING ---
[facility] ambulance transporting pt to [facility] for ercp. report called to alfonso zapata/charge nurse.
--- NOTE | 2019-03-09 18:54 | NURSING ---
CALLED [facility] MAIN, TRANSFERRED TO Q3-1 ENDOSCOPY. UNABLE TO CONTACT ANYONE FOR UPDATE ON PT. SPOUSE MADE AWARE AND IS GOING TO RUN HOME TO [employer] AND REQUESTS CALL WHEN WE HEAR SOMETHING ABOUT PT.
--- NOTE | 2019-03-09 19:23 | NURSING ---
MESSAGE LEFT FOR SPOUSE PAUL THAT HIS WAS IS BACK IN ROOM 319
--- NOTE | 2019-03-09 19:41 | NURSING ---
dr king notified that pt is on unit. he has already read report and pt may have diet as tolerated
[2019-03-09 19:53] VITALS: BP 103/60; PULSE 64; RESP 16; TEMP 36.4; O2SAT 98
[2019-03-09 20:14] VITALS: PULSE 63; RESP 18
[2019-03-09 20:15] LABS: Bedside Glucose 172 mg/dL (70-110)
[2019-03-09 20:16] VITALS: O2SAT 98
[2019-03-09] MEDS: Latanoprost 0.005% 1 Bottle 1 DRP OPHTHALMIC (21:57)
[2019-03-09] MEDS: Lisinopril 2.5 MG Tablet PO (21:57)
[2019-03-09] MEDS: Pantoprazole Sodium 40 MG Tablet PO (21:57)
[2019-03-09] MEDS: Montelukast 10 MG Tablet PO (21:58)
[2019-03-10 02:47] VITALS: BP 92/40; PULSE 72; RESP 16; TEMP 36.7; O2SAT 93
--- NOTE | 2019-03-10 06:05 | PCM.PN.SRG ---
Subjective: Pt feels much improved Stent in both CBD and pancreatic duct - Physical Exam Abdomen: Bowel Sounds Present, Soft, Non Tender - NARCISA still bilious Vital Signs Temp Pulse Resp BP Pulse Ox 98.0 F 72 16 92/40 L 93 03/10/19 02:47 03/10/19 02:47 03/10/19 02:47 03/10/19 02:47 03/10/19 02:47 Oxygen Flow Rate (L/min) 2 Oxygen Delivery Method Room Air Weight: 159 lb 6.307 oz Body Mass Index (BMI) 28.2 Finger Stick Blood Glucose 255 Intake and Output for Last 24 Hours 03/08/19 03/09/19 03/10/19 23:59 23:59 23:59 Intake Total 4025.9 / 4025.9 99 / 99 500 / 500 Output Total 2155 / 2155 715 / 715 420 / 420 Balance 1870.9 / 1870.9 -616 / -616 80 / 80 POC Glucose 03/09/19 20:00 POC Glucose 172 H Medical Necessity - Tobacco Use Smoking Status: Never smoker Assessment/Plan All Active Problems (Last Reviewed 02/22/19 @ 15:52 by Emma Emery) Biliary colic (Acute) Hx of colonoscopy (Acute) RUQ abdominal pain (Acute) Right flank pain (Acute) History of cataract surgery (Resolved) Asthma exacerbation (Acute) Diabetes mellitus, type II (Acute) Thrush, oral (Acute) Chronic bronchitis (Acute) H/O tubal ligation (Resolved) Hx of appendectomy (Resolved) Discharge today Possible NARCISA removal tomorrow in office pending volume
[2019-03-10 06:40] LABS: Bedside Glucose 142 mg/dL (70-110)
[2019-03-10] MEDS: Budesonide Respules 0.5 MG/2 ML AMPUL.NEB. INHALATION (07:07)
[2019-03-10 07:08] VITALS: PULSE 70; RESP 16; O2SAT 92
[2019-03-10 07:27] VITALS: BP 107/57; PULSE 85; RESP 18; TEMP 37.1; O2SAT 93
== END 2019-03-10 09:08 | disposition home or self-care (01) | DRG 357 ==
LOC: SDC 10:58
PROVIDERS: Surgery; Admitting Provider Surgery; Family Provider Family Medicine; PCP Family Medicine; Referring Provider Surgery; Visit Provider Surgery
PROC: (CPT 47610; principal; 2019-03-07 08:25)
PROC: 0FJB8ZZ Inspection of Hepatobiliary Duct, Via Natural or Artificial Opening Endoscopic (ICD-10-PCS; CPT 43260; principal; 2019-03-08 10:00)
DX: K91.89 Other postprocedural complications and disorders of digestive system (principal); K80.10 Calculus of gallbladder with chronic cholecystitis without obstruction; E11.9 Type 2 diabetes mellitus without complications; H40.9 Unspecified glaucoma; Y83.8 Other surgical procedures as the cause of abnormal reaction of the patient, or of later complication, without mention of misadventure at the time of the procedure; J44.9 Chronic obstructive pulmonary disease, unspecified; E66.3 Overweight; Z68.28 Body mass index [BMI] 28.0-28.9, adult; Z77.22 Contact with and (suspected) exposure to environmental tobacco smoke (acute) (chronic); Z79.84 Long term (current) use of oral hypoglycemic drugs
CPT/HCPCS: 36415; 76000; 78226; 80053; 82962; 83036; 85027; 88304; 93005; 94640; A9537; J7120; A4216; C1769; J1610; J2405

== ENCOUNTER 2019-03-22 06:12 | Day surgery (SDC) | payer BC, SELFPAY ==
[2019-03-14 12:42] VITALS: BMI 28.2
[2019-03-22] VITALS (10 sets, daily range): BP systolic 82–121; BP diastolic 32–78; PULSE 63–83; RESP 16; TEMP 36.5–36.7; O2SAT 91–98; BMI 28.8
[2019-03-22 07:06] LABS: Bedside Glucose 139 mg/dL (70-110)
--- NOTE | 2019-03-22 07:26 | PCM.HP.STD ---
Problem List (1) Postoperative bile leak Status: Acute History of Present Illness Date of Admission: 03/22/19 The patient is a 63 year old F who had bile leak after laparoscopic cholecystectomy. Patient had to be transferred from outside hospital for ERCP with stent. At the time patient also had pancreatic stent placed to prevent pancreatitis. She is here today for pancreatic stent removal. She does not complain of any abdominal pain at this time. Past Medical History Past Medical History (Chronic Problems): Chronic Problems (Last Updated 03/14/19 @ 12:41 by Nasrin Rizvi) Asthma-COPD overlap syndrome (Chronic) Overweight (BMI 25.0-29.9) (Chronic) Glaucoma (Chronic) Asthma (Chronic) Diabetes type 2, controlled (Chronic) Cataracts, bilateral (Chronic) 10/2018 Glaucoma (Chronic) Asthma (Chronic) Medical History: Medical History (Last Updated 03/14/19 @ 12:41 by Nasrin Rizvi) Biliary colic (Acute) K80.50 RUQ abdominal pain (Acute) R10.11 Right flank pain (Acute) R10.9 Asthma-COPD overlap syndrome (Chronic) J44.9 Asthma exacerbation (Acute) J45.901 Diabetes mellitus, type II (Acute) E11.9 Overweight (BMI 25.0-29.9) (Chronic) E66.3 Glaucoma (Chronic) H40.9 Thrush, oral (Acute) B37.0 Asthma (Chronic) J45.909 Chronic bronchitis (Acute) J42 Diabetes type 2, controlled (Chronic) E11.9 Glaucoma (Chronic) H40.9 Asthma (Chronic) J45.909 Cholelithiasis K80.20 Chronic cholecystitis K81.1 Allergies cat dander Allergy (Verified 03/22/19 06:43) wheezy mold Allergy (Verified 03/22/19 06:43) wheezy pollen extracts Allergy (Verified 03/22/19 06:43) wheezy amoxicillin trihydrate [From Augmentin] Adverse Reaction (Intermediate, Verified 03/22/19 06:43) Nausea potassium clavulanate [From Augmentin] Adverse Reaction (Intermediate, Verified 03/22/19 06:43) Nausea Home Medications: Ambulatory Orders Medication Instructions Recorded latanoprost 0.005 % eye drops 1 drp OPHTHALMIC QHS 11/11/17 sitagliptin 100 mg tablet 100 mg PO DINNER 11/11/17 Lisinopril [Zestril] 2.5 mg PO QHS 01/13/18 Metformin HCl [Metformin HCl ER] 1 tab PO DINNER 01/13/18 Montelukast [Singulair] 10 mg PO QHS 01/13/18 Omeprazole 1 tab PO QHS 01/13/18 albuterol sulfate HFA 90 2 puff INHALATION Q4H PRN #1 device 11/11/18 mcg/actuation aerosol inhaler Fluticasone Propionate [Flovent 1 puff INHALATION BID 02/28/19 Hfa] Surgical History: Surgical History (Last Updated 03/14/19 @ 12:41 by Nasrin Rizvi) Hx of colonoscopy (Acute) Z98.890 2017 History of cataract surgery (Resolved) Z98.49 H/O tubal ligation (Resolved) Z98.51 04/1992 Hx of appendectomy (Resolved) Z98.890, Z90.49 1973 Cataracts, bilateral (Chronic) H26.9 10/2018 S/P laparoscopic cholecystectomy Onset Date: ~03/07/19 Z90.49 Surgical History: - - Appendectomy, BLTL. 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 Smoking Status: Never smoker - *Family History Maternal Family History: Family History (Last Reviewed 03/14/19 @ 12:39 by Nasrin Rizvi) Father Diabetes History Items: - Paternal Family History: Family History (Last Reviewed 03/14/19 @ 12:39 by Nasrin Rizvi) Father Diabetes History Items: - Review of Systems Constitutional: Denies: Anorexia, Chills, Fever HEENT: Denies: Difficulty Swallowing Cardiovascular: Denies: Chest Pain Respiratory: Denies: Cough, Shortness of Breath Gastrointestinal: Denies: Abdominal Pain, Nausea, Vomiting Genitourinary: Denies: Dysuria Musculoskeletal: Denies: Arm Pain, Back Pain Skin: Denies: Dryness, Jaundice Neurological: Denies: Blurred vision Psychiatric: Denies: Anxiety, Depression Hematologic/ Lymphatic: Denies: Anemia VTE Information - Inpt Only VTE Present on Admission: No VTE Mechan Device Prophylaxis: SCD's - Physical Exam General: Alert, Oriented x3 Neck: No JVD Lungs: Normal air movement Cardiovascular: Regular rate, Regular Rhythm Abdomen: Soft, Non Tender, Non-Distended Extremities: No clubbing Skin: No rashes Musculoskeletal: No Tenderness to Palpation of Joints or Extremities Neurological: Cranial nerves II-XII grossly intact Psych/Mental Status: Normal Affect Vital Signs Temp Pulse Resp BP Pulse Ox 98.0 F 83 16 121/64 H 98 03/22/19 06:45 03/22/19 06:45 03/22/19 06:45 03/22/19 06:45 03/22/19 06:45 Oxygen Delivery Method Room Air Weight: 157 lb 10.088 oz Body Mass Index (BMI) 28.8 Finger Stick Blood Glucose 255 POC Glucose 03/22/19 06:51 POC Glucose 139 H Assessment/Plan All Active Problems (Last Updated 03/14/19 @ 12:41 by Nasrin Rizvi) Postoperative bile leak (Acute) Biliary colic (Acute) Hx of colonoscopy (Acute) RUQ abdominal pain (Acute) Right flank pain (Acute) History of cataract surgery (Resolved) Asthma exacerbation (Acute) Diabetes mellitus, type II (Acute) Thrush, oral (Acute) Chronic bronchitis (Acute) H/O tubal ligation (Resolved) Hx of appendectomy (Resolved) 63-year-old female with bile leak 1. Plan is to take the patient today for EGD with pancreatic stent removal. Patient is scheduled for biliary stent removal in 1 month. I explained the risks of the procedure including but not limited to bleeding, infection, dislodgment of the biliary stent. Patient understands the risks and is willing to proceed. Homer Lara MD Pager: [facility] [address] [place] [address], [address] [place] [address] Office:
--- NOTE | 2019-03-22 07:56 | OP.ENDO_ITS ---
03/22/2019 Nadira Montoya [facility] [address] [address] Re : Upper GI endoscopy procedure for Sandra Opal Dear Dr. Montoya This procedure was performed on Friday, March 22, 2019. My impressions and recommendations are as follows: Impressions : - Biliary pancreatic stents in the duodenum. - Foreign body removal. Recommendations : - Discharge patient to home. - Resume previous diet. - Continue present medications. My findings are described in the full procedure note, which is enclosed. If I can be of further assistance, please feel free to contact me at Doctor phone number(s): , Work: . Sincerely, Homer Lara MD 03/22/2019 7:56:32 AM This report has been signed electronically.
== END 2019-03-22 08:53 | disposition home or self-care (01) ==
LOC: EN 06:13 → AC 06:14
PROVIDERS: Family Provider Family Medicine; PCP Family Medicine; Referring Provider Family Medicine; Visit Provider Surgery
PROC: 0DJ08ZZ Inspection of Upper Intestinal Tract, Via Natural or Artificial Opening Endoscopic (ICD-10-PCS; CPT 43235; principal; 2019-03-22 07:25)
DX: Z46.59 Encounter for fitting and adjustment of other gastrointestinal appliance and device (principal); E11.9 Type 2 diabetes mellitus without complications; Z98.51 Tubal ligation status; Z90.49 Acquired absence of other specified parts of digestive tract; H40.9 Unspecified glaucoma; J44.9 Chronic obstructive pulmonary disease, unspecified; M35.1 Other overlap syndromes; Z88.0 Allergy status to penicillin
CPT/HCPCS: 43247; 82962; J7120; J2405

== ENCOUNTER 2019-04-21 06:20 | Day surgery (SDC) | payer BC, SELFPAY ==
[2019-03-14 12:42] VITALS: BMI 28.2
[2019-04-04 16:18] VITALS: BMI 28.8
[2019-04-21] VITALS (7 sets, daily range): BP systolic 95–110; BP diastolic 54–76; PULSE 72–79; RESP 18; TEMP 36–36.4; O2SAT 94–100; BMI 28.8
--- NOTE | 2019-04-21 06:50 | PCM.HP.STD ---
Problem List (1) Postoperative bile leak Status: Acute History of Present Illness Date of Admission: 04/21/19 The patient is a 63 year old F who had bile leak after cholecystectomy. ERCP was attempted here but was unsuccessful and she was transferred to outside facility. There they placed a biliary and pancreatic stent. She presented to us 1 week later and pancreatic stent was removed. Patient is here today for biliary stent removal and cholangiogram. No changes since last visit. Past Medical History Past Medical History (Chronic Problems): Chronic Problems (Last Reviewed 04/04/19 @ 15:16 by Nelia Cunningham) Asthma-COPD overlap syndrome (Chronic) Overweight (BMI 25.0-29.9) (Chronic) Glaucoma (Chronic) Asthma (Chronic) Diabetes type 2, controlled (Chronic) Cataracts, bilateral (Chronic) 10/2018 Glaucoma (Chronic) Asthma (Chronic) Medical History: Medical History (Last Reviewed 04/04/19 @ 15:16 by Nelia Cunningham) Biliary colic (Acute) K80.50 RUQ abdominal pain (Acute) R10.11 Right flank pain (Acute) R10.9 Asthma-COPD overlap syndrome (Chronic) J44.9 Asthma exacerbation (Acute) J45.901 Diabetes mellitus, type II (Acute) E11.9 Overweight (BMI 25.0-29.9) (Chronic) E66.3 Glaucoma (Chronic) H40.9 Thrush, oral (Acute) B37.0 Asthma (Chronic) J45.909 Chronic bronchitis (Acute) J42 Diabetes type 2, controlled (Chronic) E11.9 Glaucoma (Chronic) H40.9 Asthma (Chronic) J45.909 Cholelithiasis K80.20 Chronic cholecystitis K81.1 Allergies cat dander Allergy (Verified 04/15/19 11:14) wheezy mold Allergy (Verified 04/15/19 11:14) wheezy pollen extracts Allergy (Verified 04/15/19 11:14) wheezy amoxicillin trihydrate [From Augmentin] Adverse Reaction (Intermediate, Verified 04/15/19 11:14) Nausea potassium clavulanate [From Augmentin] Adverse Reaction (Intermediate, Verified 04/15/19 11:14) Nausea Home Medications: Ambulatory Orders Medication Instructions Recorded latanoprost 0.005 % eye drops 1 drp OPHTHALMIC QHS 11/11/17 sitagliptin 100 mg tablet 100 mg PO DINNER 11/11/17 Lisinopril [Zestril] 2.5 mg PO QHS 01/13/18 Metformin HCl [Metformin HCl ER] 2 tab PO DINNER 01/13/18 Omeprazole 1 tab PO QHS 01/13/18 albuterol sulfate HFA 90 2 puff INHALATION Q4H PRN #1 device 11/11/18 mcg/actuation aerosol inhaler Fluticasone Propionate [Flovent 1 puff INHALATION BID 02/28/19 Hfa] montelukast 10 mg tablet 10 mg PO QHS #30 tab 04/19/19 Surgical History: Surgical History (Last Updated 04/04/19 @ 15:17 by Nelia Cunningham) Hx of colonoscopy (Acute) Z98.890 2017 History of cataract surgery (Resolved) Z98.49 H/O tubal ligation (Resolved) Z98.51 04/1992 Hx of appendectomy (Resolved) Z98.890, Z90.49 1973 Cataracts, bilateral (Chronic) H26.9 10/2018 S/P laparoscopic cholecystectomy Onset Date: ~03/07/19 Z90.49 s/p ercp with stent 03/22/19 Surgical History: - - Appendectomy, BLTL. 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 Smoking Status: Never smoker - *Family History Maternal Family History: Family History (Last Reviewed 04/04/19 @ 15:16 by Nelia Cunningham) Father Diabetes History Items: - Paternal Family History: Family History (Last Reviewed 04/04/19 @ 15:16 by Nelia Cunningham) Father Diabetes History Items: - Review of Systems Constitutional: Denies: Anorexia Cardiovascular: Denies: Chest Pain Respiratory: Denies: Cough, Shortness of Breath Gastrointestinal: Denies: Abdominal Pain Musculoskeletal: Denies: Joint Tenderness VTE Information - Inpt Only VTE Present on Admission: No VTE Mechan Device Prophylaxis: SCD's - Physical Exam General: Alert, Oriented x3 Neck: No JVD Lungs: Normal air movement Cardiovascular: Regular rate, Regular Rhythm Abdomen: Soft, Non Tender, Non-Distended Vital Signs Temp Pulse Resp BP Pulse Ox 97.3 F L 79 18 110/54 L 98 04/21/19 06:42 04/21/19 06:42 04/21/19 06:42 04/21/19 06:42 04/21/19 06:42 Oxygen Delivery Method Room Air Weight: 157 lb 13.616 oz Body Mass Index (BMI) 28.8 Finger Stick Blood Glucose 255 Assessment/Plan All Active Problems (Last Updated 04/04/19 @ 15:17 by Nelia Cunningham) Postoperative bile leak (Acute) Biliary colic (Acute) Hx of colonoscopy (Acute) RUQ abdominal pain (Acute) Right flank pain (Acute) History of cataract surgery (Resolved) Asthma exacerbation (Acute) Diabetes mellitus, type II (Acute) Thrush, oral (Acute) Chronic bronchitis (Acute) H/O tubal ligation (Resolved) Hx of appendectomy (Resolved) 63-year-old female with biliary leak 1. Patient will have ERCP today with stent removal and cholangiogram. If leak is persistent new biliary stent will be placed. If leak has resolved stent will be removed. 2. I explained endoscopy in detail to the patient. I explained the risks including but not limited to stroke or heart attack with anesthesia, perforation of the GI tract, bleeding, infection, pancreatitis. I explained that any of these could necessitate further emergency surgery. The patient understands and all questions were answered sufficiently. The patient wishes to proceed with procedure. Homer Lara MD Pager: [facility] [address] [place] [address] [address] [place] [address] Office:
[2019-04-21 06:56] LABS: Bedside Glucose 143 mg/dL (70-110)
--- NOTE | 2019-04-21 07:30 | RAD_ITS ---
STUDY: ERCP. REASON FOR EXAM: Female, 63 years old. Post cholecystectomy biliary leak. FLUOROSCOPY TIME (if supplied): (1:10) minutes/seconds. 2 images were obtained. TECHNIQUE: An ERCP was performed by the surgeon. Imaging was submitted. COMPARISON: None. FINDINGS: A guidewire is seen within the common bile duct. Contrast is injected. There is no evidence of leakage. RAD/ERCP Biliary Only IMPRESSION: No evidence of biliary leak on this examination. Electronically Signed: Yuval Catalan, at 10:17 EDT , Service support ,
--- NOTE | 2019-04-21 08:04 | OP.ENDO_ITS ---
04/21/2019 Nadira Montoya [place] [address] [address] Re : ERCP procedure for Sandra Joseph Dear Dr. Montoya This procedure was performed on April. My impressions and recommendations are as follows: Impressions : - The major papilla appeared normal. Recommendations : - Resume previous diet. - Discharge patient to home. - Return to my office PRN. - Continue present medications. My findings are described in the full procedure note, which is enclosed. If I can be of further assistance, please feel free to contact me at Doctor phone number(s): , Work: . Sincerely, Homer Lara MD 04/21/2019 8:03:51 AM This report has been signed electronically.
[2019-04-21 08:21] LABS: Bedside Glucose 126 mg/dL (70-110)
--- NOTE | 2019-04-21 08:38 | RAD_ITS ---
STUDY: X-RAY - ABDOMEN/PELVIS REASON FOR EXAM: Female, 63 years old. Post ERCP examination. TECHNIQUE: Single AP view of the abdomen / pelvis. COMPARISON: None. FINDINGS: Normal visualized lung bases. There is an unremarkable bowel gas pattern. There is no demonstrated free abdominal air. The visualized liver, spleen and kidneys are grossly normal in size and morphology. Normal soft tissue structures. Normal visualized osseous structures. RAD/Abdomen Single View (Portable) IMPRESSION: Normal x-ray examination of the abdomen and pelvis. Electronically Signed: Yuval Catalan, at 9:59 EDT , Service support ,
== END 2019-04-21 09:31 | disposition home or self-care (01) ==
LOC: EN 06:22 → AC 06:23
PROVIDERS: Family Provider Family Medicine; PCP Family Medicine; Referring Provider Surgery; Visit Provider Surgery
PROC: (CPT 43260; principal; 2019-04-21 07:00)
DX: K83.8 Other specified diseases of biliary tract (principal); Z88.0 Allergy status to penicillin; E11.9 Type 2 diabetes mellitus without complications; J44.9 Chronic obstructive pulmonary disease, unspecified; H40.9 Unspecified glaucoma; E66.3 Overweight; Z68.25 Body mass index [BMI] 25.0-25.9, adult
CPT/HCPCS: 43260; 74018; 74328; 76000; 82962; 93005; J7120; J2405

== ENCOUNTER → 2019-04-27 07:00 | Outpatient (CLI) | payer BC, SELFPAY ==
[2019-04-04 16:18] VITALS: BMI 28.8
[2019-04-26 07:09] VITALS: BMI 28.9
--- NOTE | 2019-04-27 07:00 | BI_ITS ---
MAMMOGRAPHY - BILATERAL SCREENING REASON FOR EXAM: Female, 63 years old. Routine annual screening examination. PERTINENT HISTORY: Aunt with breast cancer. TECHNIQUE: Digital bilateral breast terrell (3D mammographic acquisition) in the CC and MLO projections. 2-D mediolateral oblique (MLO) and craniocaudad (CC) views of both breasts were obtained. CAD: Full Field Digital Mammography with Computer Added Detection was performed. COMPARISON: Comparison is made with prior outside examination of January 26, 2017. FINDINGS: Breast Composition: There are scattered areas of fibroglandular density. There are no dominant masses or suspicious calcifications. Stable 6 mm well-defined nodule in the upper lateral aspect of the left breast most likely a small lymph node. Small bilateral benign-appearing axillary lymph nodes. No other significant abnormalities are identified. There has been no significant change since the prior study. BI/SCREEN MAMM (CAD) W/TERRELL BILAT IMPRESSION: Stable bilateral screening mammogram. Yearly follow-up mammogram recommended. (A) ASSESSMENT CATEGORY: BIRADS Category 2: Benign. A letter regarding these results will be sent to the patient by the facility within 30 days. Approximately 10% of breast cancers are not detected by mammography. A normal mammogram should not delay biopsy of a clinically suspicious abnormality. [id number] Electronically Signed: Yuval Catalan, at 15:05 EDT , Service support ,
== END ==
PROVIDERS: Family Provider Family Medicine; PCP Family Medicine; Referring Provider Obstetrics & Gynecology; Visit Provider Obstetrics & Gynecology
DX: Z12.31 Encounter for screening mammogram for malignant neoplasm of breast (principal)
CPT/HCPCS: 77063; 77067

== ENCOUNTER → 2019-05-17 | Outpatient (CLI) | payer BC, SELFPAY ==
[2019-04-26 07:09] VITALS: BMI 28.9
[2019-05-17 08:39] LABS: Cholesterol 250 mg/dL (200); High Density Lipoprotein 56 mg/dL; Triglycerides 236 mg/dL; Very Low Density Lipoprotein 47 mg/dL (5-40)
== END | disposition home or self-care (01) ==
LOC: LAB 07:24
PROVIDERS: Family Provider Family Medicine; PCP Family Medicine; Referring Provider Family Medicine; Visit Provider Family Medicine
DX: E11.9 Type 2 diabetes mellitus without complications (principal)
CPT/HCPCS: 36415; 80061

== ENCOUNTER → 2019-06-22 17:01 | Outpatient (CLI) | payer BC, SELFPAY ==
[2019-06-22 08:29] VITALS: BMI 28.9
[2019-06-27 12:28] LABS: HPV APTIMA, High Risk Negative (Negative)
== END ==
PROVIDERS: Family Provider Family Medicine; PCP Family Medicine; Referring Provider Nurse Practitioner Women's Health; Visit Provider Nurse Practitioner Women's Health
DX: Z87.898 Personal history of other specified conditions (principal)
CPT/HCPCS: 87624; 88175; G0145

== ENCOUNTER → 2020-08-06 10:07 | Outpatient (CLI) | payer MEDICARE, SELFPAY ==
[2020-08-06 09:41] VITALS: BMI 30.5
[2020-08-06 13:02] LABS: Microalbumin,Random Urine 5.5 mg/L (NO RANGE EST.); Microalbumin:Creatinine Ratio 9.9 mg/g CRE (<30 mg/g CRE)
[2020-08-06 13:06] LABS: ALB/GLOB Ratio 1.1 RATIO (0.9-2.4); AST(SGOT) 24 U/L (15-37); Alanine Aminotransfer ALT/SGPT 41 U/L (13-56); Albumin, Serum 3.9 g/dL (3.2-5.0); Alkaline Phosphatase 53 U/L (45-117); Anion Gap 6 (5-15); BUN 11 mg/dL (7-18); BUN/Creat Ratio 11.8 RATIO (10-20); Chloride 104 mmol/L (98-107); Cholesterol 141 mg/dL (200); Creatinine, Serum 0.93 mg/dL (0.55-1.02); EST Glomerular Filtration Rate 64 mL/min (>60); Est Glom Filt Rate - Afr Amer 78 mL/min (>60); Globulin 3.7 g/dL (2.2-4.2); Glucose 109 mg/dL (74-106); High Density Lipoprotein 54 mg/dL; Potassium 4.3 mmol/L (3.5-5.1); Protein, Total 7.6 g/dL (6.4-8.2); Sodium Level 137 mmol/L (136-145); Thyroid Stim Hormone (TSH) 3.24 uIU/mL (0.358-3.74); Triglycerides 137 mg/dL; Very Low Density Lipoprotein 27 mg/dL (5-40)
[2020-08-08 08:13] LABS: Vitamin D,25 Hydroxy 23.3 ng/mL
== END ==
PROVIDERS: PCP Family Medicine; Visit Provider Internal Medicine Endocrinology, Diabetes & Metabolism
DX: E78.5 Hyperlipidemia, unspecified (principal); E11.9 Type 2 diabetes mellitus without complications; E55.9 Vitamin D deficiency, unspecified
CPT/HCPCS: 36415; 80053; 80061; 82043; 82306; 82570; 84443

== ENCOUNTER → 2020-08-16 09:47 | Outpatient (CLI) | payer MEDICARE, SELFPAY ==
[2020-08-06 10:11] VITALS: BMI 30.9
--- NOTE | 2020-08-16 09:50 | BD_ITS ---
STUDY: DUAL ENERGY X-RAY ABSORPTIOMETRY / DXA REASON FOR EXAM: Female, 64 years old. Age of addie 54. Pat is 165.6# and 62.25 and quot;. Type II diabetic and takes metformin. Uses an inhaler for asthma prn. Exercises a little. Hx of a little finger fx. TECHNIQUE: Bone Mineral Density (BMD) measurements of lumbar spine and bilateral hips were obtained. COMPARISON: None. FINDINGS: Lumbar Spine (L1-L4): g/cm2 (0.969) / T-score (-1.8) / Z-score (-0.2) Findings are suggestive of osteopenia with a moderate fracture risk. Left Femur Total: g/cm2 (0.948) / T-score (-0.5) / Z-score (0.8) Left Femoral Neck: g/cm2 (0.811) / T-score (-1.6) / Z-score (-0.1) Right Femur Total: g/cm2 (0.958) / T-score (-0.4) / Z-score (0.8) Right Femoral Neck: g/cm2 (0.804) / T-score (-1.7) / Z-score (-0.2) BD/Dexa Bone Density Study IMPRESSION: The patient is considered osteopenic as outlined below according to World [place] Organization (WHO) criteria with a moderate fracture risk. Reference Information: The T-score is the number of standard deviations above or below the standard which is normal for young adults at their peak bone mineral density. The World Health Organization (WHO) interprets the T-scores as follows: Above -1 Normal bone density Between -1 and -2.5 Osteopenia Equal to / or below -2.5 Osteoporosis As a practical clinical guideline, osteopenia may be graded as follows: Mild -1 through -1.5 Moderate -1.6 through -2.0 Severe -2.1 through -2.4 The Z-score is the number of standard deviations above or below age-matched controls. A Z-score of less than -1.5 would be considered abnormal. References: 1. NIH Osteoporosis and Related Bone Diseases www osteo.org 2. International Society for Clinical Densitometry www iscd.org 3. National Osteoporosis Foundation www nof.org Electronically Signed: Yuval Catalan, at 10:52 EDT , Service support ,
== END ==
PROVIDERS: PCP Family Medicine; Referring Provider Internal Medicine Endocrinology, Diabetes & Metabolism; Visit Provider Internal Medicine Endocrinology, Diabetes & Metabolism
DX: M81.0 Age-related osteoporosis without current pathological fracture (principal); E11.9 Type 2 diabetes mellitus without complications; E78.5 Hyperlipidemia, unspecified; Z79.84 Long term (current) use of oral hypoglycemic drugs; Z79.51 Long term (current) use of inhaled steroids
CPT/HCPCS: 77080

== ENCOUNTER → 2020-09-24 15:45 | Outpatient (CLI) | payer MEDICARE, SELFPAY ==
[2020-08-06 10:11] VITALS: BMI 30.9
--- NOTE | 2020-09-24 15:46 | BI_ITS ---
MAMMOGRAPHY - BILATERAL SCREENING REASON FOR EXAM: Female, 64 years old. Routine annual screening examination. PERTINENT HISTORY: Screening TECHNIQUE: Digital bilateral breast terrell (3D mammographic acquisition) in the CC and MLO projections. 2-D mediolateral oblique (MLO) and craniocaudad (CC) views of both breasts were obtained. CAD: Full Field Digital Mammography with Computer Added Detection was performed. COMPARISON: 04/27/2019 FINDINGS: Breast Composition: Scattered There are no dominant masses or suspicious calcifications. No other significant abnormalities are identified. BI/SCREEN MAMM (CAD) W/TERRELL BILAT IMPRESSION: Stable bilateral screening mammogram. Yearly follow-up mammogram recommended. (A) ASSESSMENT CATEGORY: BIRADS Category 1: Negative. A letter regarding these results will be sent to the patient by the facility within 30 days. Approximately 10% of breast cancers are not detected by mammography. A normal mammogram should not delay biopsy of a clinically suspicious abnormality. [id number] Electronically Signed: Chance Paredes, at 17:48 EST Tel , Service support ,
== END ==
PROVIDERS: PCP Family Medicine; Referring Provider Family Medicine; Visit Provider Family Medicine
DX: Z12.31 Encounter for screening mammogram for malignant neoplasm of breast (principal)
CPT/HCPCS: 77063; 77067

== ENCOUNTER → 2020-12-06 15:04 | Outpatient (CLI) | payer MEDICARE, SELFPAY ==
[2020-08-06 10:11] VITALS: BMI 30.9
[2020-12-06 17:49] LABS: AST(SGOT) 97 U/L (15-37); Alanine Aminotransfer ALT/SGPT 300 U/L (13-56); Albumin, Serum 3.4 g/dL (3.2-5.0); Alkaline Phosphatase 130 U/L (45-117); Globulin 4.3 g/dL (2.2-4.2); Protein, Total 7.7 g/dL (6.4-8.2)
== END ==
PROVIDERS: PCP Family Medicine; Visit Provider Family Medicine
DX: R82.2 Biliuria (principal)
CPT/HCPCS: 36415; 80076

== ENCOUNTER → 2021-05-24 10:21 | Outpatient (CLI) | payer MEDICARE, SELFPAY ==
[2021-05-07 06:09] VITALS: BMI 31.8
--- NOTE | 2021-05-24 10:26 | US_ITS ---
INDICATION: goiter EXAMINATION: Ultrasound US Thyroid (eg thyroid, parathyroid, parotid) TECHNIQUE: Hess scale and color doppler imaging was performed of the thyroid gland. COMPARISON: None. FINDINGS: RIGHT THYROID LOBE: 4.2 x 1.2 x 1.2 cm. Homogeneous echotexture with normal vascularity. [No thyroid nodules are present. LEFT THYROID LOBE: 3.5 x 0.9 x 0.9 cm. Homogeneous echotexture with normal vascularity. [No thyroid nodules are present. ISTHMUS: 1 mm AP dimension. No thyroid nodules are present. US/Thyroid IMPRESSION: Sonographic images of the thyroid demonstrate normal size and morphology without evidence of nodule or abnormal DOPPLER flow. Electronically Signed: Srini Rowell MD at 11:49 EDT Tel , Service support ,
== END ==
PROVIDERS: PCP Family Medicine; Referring Provider Internal Medicine Endocrinology, Diabetes & Metabolism; Visit Provider Internal Medicine Endocrinology, Diabetes & Metabolism
DX: E04.9 Nontoxic goiter, unspecified (principal)
CPT/HCPCS: 76536

== ENCOUNTER → 2021-10-21 15:55 | Outpatient (CLI) | payer MEDICARE, SELFPAY ==
--- NOTE | 2021-10-21 15:57 | BI_ITS ---
MAMMOGRAPHY - BILATERAL SCREENING REASON FOR EXAM: Female, 65 years old. Routine annual screening examination. PERTINENT HISTORY: Aunt with breast cancer. TECHNIQUE: Digital bilateral breast terrell (3D mammographic acquisition) in the CC and MLO projections. 2-D mediolateral oblique (MLO) and craniocaudad (CC) views of both breasts were obtained. CAD: Full Field Digital Mammography with Computer Added Detection was performed. COMPARISON: Comparison is made with prior study dated 09/24/2020 and 04/27/2019. FINDINGS: Breast Composition: There are scattered areas of fibroglandular density. There are no dominant masses or suspicious calcifications. Stable small benign-appearing bilateral axillary lymph nodes. No other significant abnormalities are identified. There has been no significant change since the prior study. BI/SCRN MAMM (CAD)W/TERRELL BILAT IMPRESSION: Stable bilateral screening mammogram. Yearly follow-up mammogram recommended. (A) ASSESSMENT CATEGORY: BIRADS Category 2: Benign. A letter regarding these results will be sent to the patient by the facility within 30 days. Approximately 10% of breast cancers are not detected by mammography. A normal mammogram should not delay biopsy of a clinically suspicious abnormality. [id number] Electronically Signed: Yuval Catalan MD at 8:47 EST , Service support ,
== END ==
PROVIDERS: PCP Family Medicine; Referring Provider Obstetrics & Gynecology; Visit Provider Obstetrics & Gynecology
DX: Z12.31 Encounter for screening mammogram for malignant neoplasm of breast (principal)
CPT/HCPCS: 77063; 77067

== ENCOUNTER 2022-02-17 10:22 | Outpatient (CLI) | payer OTHER, SELFPAY ==
[2022-02-17 12:22] LABS: Vitamin D,25 Hydroxy 50.3 ng/mL
[2022-02-17 12:53] LABS: ALB/GLOB Ratio 0.9 RATIO (0.9-2.4); AST(SGOT) 24 U/L (15-37); Alanine Aminotransfer ALT/SGPT 34 U/L (13-56); Albumin, Serum 3.7 g/dL (3.2-5.0); Alkaline Phosphatase 89 U/L (45-117); Anion Gap 8 (5-15); BUN 19 mg/dL (7-18); BUN/Creat Ratio 18.4 RATIO (10-20); Calcium,Total 9.5 mg/dL (8.5-10.1); Chloride 109 mmol/L (98-107); Cholesterol 176 mg/dL (200); Creatinine, Serum 1.03 mg/dL (0.55-1.02); EST Glomerular Filtration Rate 57 mL/min (>60); Est Glom Filt Rate - Afr Amer 69 mL/min (>60); Globulin 3.9 g/dL (2.2-4.2); Glucose 186 mg/dL (74-106); High Density Lipoprotein 45 mg/dL; Potassium 4.1 mmol/L (3.5-5.1); Protein, Total 7.6 g/dL (6.4-8.2); Sodium Level 140 mmol/L (136-145); Thyroid Stim Hormone (TSH) 3.07 uIU/mL (0.358-3.74); Triglycerides 289 mg/dL; Very Low Density Lipoprotein 58 mg/dL (5-40)
[2022-02-17 15:25] LABS: Microalbumin,Random Urine 5.6 mg/L (NO RANGE EST.); Microalbumin:Creatinine Ratio 14.7 mg/g CRE (<30 mg/g CRE)
[2022-02-19 10:32] LABS: Thyroid Peroxidase AB < 8 IU/mL (0-34)
== END 2022-02-17 23:59 | disposition home or self-care (01) ==
LOC: BIMLAB 10:23
PROVIDERS: PCP Family Medicine; Referring Provider Internal Medicine Endocrinology, Diabetes & Metabolism; Visit Provider Internal Medicine Endocrinology, Diabetes & Metabolism
DX: E11.9 Type 2 diabetes mellitus without complications (principal); E78.2 Mixed hyperlipidemia; I10 Essential (primary) hypertension; E55.9 Vitamin D deficiency, unspecified; E66.09 Other obesity due to excess calories; Z68.30 Body mass index [BMI] 30.0-30.9, adult
CPT/HCPCS: 36415; 80053; 80061; 82043; 82306; 82570; 84443; 86376

== ENCOUNTER 2023-10-20 10:47 | Emergency (ER) | payer MEDICARE, SELFPAY ==
[2023-10-20 10:47] VITALS: TEMP 36.6; O2SAT 100
--- NOTE | 2023-10-20 11:09 | EX.ED.CRITCA ---
HPI History of Present Illness Chief Complaint: CPR Narrative Narrative: 67-year-old female past medical history of COPD, presents with CPR in progress via EMS. According to EMS, patient started a new medication yesterday. She is feeling well yesterday, but this morning awoke and was not feeling up to par. EMS was called because of unresponsiveness. According to her , he did compressions on her chest and awaited EMS arrival. When they arrived, she was in asystole/PEA. IO access was obtained in the left humerus, and they gave a total of 5 epinephrine and placed her on a Kishor device. During their pulse checks, she was always in PEA. [facility] Medical History (Updated 10/20/23 @ 11:15 by Obey [place]) COPD (chronic obstructive pulmonary disease) Allergy/AdvReac Type Severity Reaction Status Date / Time Unable to Assess Allergy Verified 10/20/23 11:14 ROS ROS ED Review of Systems ROS Unobtainable: due to endotracheal tube and other Details: Cardiopulmonary arrest EXAM Physical Exam Narrative Exam Narrative: On arrival to the ED, examination reveals CPR in progress with Kishor device. There is an IO in her left humerus. I gel was in place. No spontaneous respirations. Pupils fixed and dilated. GCS 3 T. MDM MDM MDM Narrative Medical decision making narrative: CPR was continued. She received an additional 5 mg of epinephrine. With each pulse check, she remained in PEA. I did exchange the i-gel for a 7 ET tube which was placed with a 3 MAC using the glide scope. At this time, the patient had already been down for approximately 30 minutes. Confirmation was confirmed with direct visualization, and color change on capnography. Her , Chuy, has arrived along with her daughter and other members of her family. Initially, they wanted to see the patient while CPR was in progress. With further discussion with them, at the next pulse check, they would want compressions ceased. According to their wishes, at the next pulse check, patient was still in PEA. Her pupils were fixed and dilated without corneal reflex, no auscultated heart sounds, no spontaneous respirations, no palpable pulse. Given her prolonged downtime and CPR without successful resuscitation, she was pronounced by myself at 1105. Disposition is in the emergency department. History & Record Review Discussion w/independent historian: EMS personnel Critical Care Time Critical Care Time: Yes Critical care time (excluding procedures): 30-74 minutes (31), Including time spent:, Discussing w/Patient &/or Family/Inpatient Care Manager Rn and Performing Direct Patient Care at Bedside Discharge Plan Triage Chief Complaint: CPR ED Provider: Zachary Benedict Dx/Rx/DC Orders Clinical Impression: Cardiopulmonary arrest Primary Care Provider: Nadira Montoya Referrals: Nadira Montoya MD [Primary Care Provider] - Disposition Disposition: Date/Time: 10/20/23 11:05
--- NOTE | 2023-10-20 11:18 | ED.RN ---
300 ML NORMAL SALINE GIVEN IV
--- NOTE | 2023-10-20 12:12 | ED.RN ---
PT JASMIN AGUAYO PHONE NUMBER [phone]. PT DAUGHTER AARON PATINO [phone].
--- NOTE | 2023-10-20 13:08 | CHAPLAIN ---
Type of Pastoral Visit ___ Initial Visit ___ Follow-up Visit ___ On-call Visit ___ General Patient Visit ___ Spiritual Assessment ___ Family Conference ___ Bereavement ___ Rapid Response _x__ Code Blue ___ Other (describe below) Pastoral Care Referral From ___ Patient ___ Family ___ Nurse ___ Physician ___ Hide Grader ___ Pricing Strategist _x__ Other (describe below) Sacrament/Intervention _x__ Active listening ___ Anointing ___ Scientology _x__ Bereavement ___ Communion _x__ Renetta exploration ___ _x__ Life review _x__ Prayer ___ Reconciliation ___ Sacrament of Sick _x__ Supportive presence ___ Wedding ___ Other (describe below) Pastoral Comments patient was brought to ED by squad and was being given CPR; pt continued to receive active interventions but did not respond and was declared ; spouse had come to hospital almost simultaneously and was met in the waiting room by this precipitator operator; offer of support, presence, listening to story of how pt was discovered, and gave prayer as waiting on news from medical team; this precipitator operator became a communication bridge with medical team and spouse; soon a daughter, son in law, and son had arrived to ED; escorted family members into room after met with them and explained the situation; patient was pronounced and this precipitator operator escorted family members into room for final prayers and support of presence; other family members came over the next hour and they were greeted, supported, and escorted in and out of the ED room; assisted family with a brief conference for family to make initial decisions; stayed with family members until all had said their goodbyes and were then leaving the building
== END 2023-10-20 13:02 ==
PROVIDERS: Emergency Provider Emergency Medicine; PCP Family Medicine; Visit Provider Emergency Medicine
DX: J44.9 Chronic obstructive pulmonary disease, unspecified (principal); I46.9 Cardiac arrest, cause unspecified
CPT/HCPCS: 31500; 92950; 99282; J7030; A4216